=== PATIENT | female | born 1970 | race African-American/Black ===

== ENCOUNTER 2023-02-12 08:34 | Emergency (ER) | payer OTHER, SELFPAY ==
[2023-02-12] VITALS (9 sets, daily range): BP systolic 200–231; BP diastolic 89–110; PULSE 47–59; RESP 13–24; TEMP 36.9; O2SAT 98–100; BMI 47.2
--- NOTE | 2023-02-12 09:01 | DI.RAD.S_ITS ---
PROCEDURE: XR CHEST 1V INDICATIONS: High blood pressure TECHNIQUE: One view of the chest was acquired. COMPARISON: None. FINDINGS: Surgical changes and devices: None. Lungs and pleura: Lungs are clear. No pleural effusions or pneumothorax. Mediastinum: Mediastinal contours appear normal. Heart size is enlarged. Bones and chest wall: No suspicious bony lesions. Overlying soft tissues appear unremarkable. IMPRESSION: No acute cardiopulmonary abnormality. Dictated by: Abby Odell M.D. on 02/12/2023 at 11:25 Approved by: Abby Odell M.D. on 02/12/2023 at 11:25
--- NOTE | 2023-02-12 09:02 | ED_ITS ---
HPI - General Adult General Chief complaint: Hypertension Stated complaint: sent by Nurse hotline for high B/P and Headache Time Seen by Provider: 02/12/23 08:38 Source: patient Mode of arrival: Ambulatory History of Present Illness HPI narrative: Patient is a 52-year-old female. For the past 2 weeks has had a headache. She is tried Tylenol without any improvement. States the pain is somewhat behind her right eye. She is no other neurologic symptoms to include numbness or tingling in her upper lower extremity. Her who is at bedside stated that she stumbled this morning. The patient does not specifically remember why she stumbled. She did not hit her head. She is under quite a bit of stress she has her parents living with her and her father has Alzheimer's. This is new stress in her life. Because she was having a headache her mom gave her a blood pressure cuff. She is been taking her blood pressures and they have ranged anywhere from 170s systolic to 190 systolic. She does not have a history of high blood pressure. Does not take any medicines. She called the nurse hotline who advised that she come to the emergency department for further evaluation. Related Data Previous Rx's Medication Instructions Recorded lisinopril 10 mg tablet 10 mg PO DAILY #30 tabs 02/12/23 Allergies Allergy/AdvReac Type Severity Reaction Status Date / Time Penicillins [PENICILLINS] Allergy Mild RASH Verified 02/12/23 09:27 amoxicillin [From AUGMENTIN] Allergy Unknown RASH Verified 02/12/23 09:27 clavulanic acid Allergy Unknown RASH Verified 02/12/23 09:27 [From AUGMENTIN] Review of Systems Constitutional Constitutional: Reports system reviewed and no additional complaints, except as documented Eyes Eyes: Reports system reviewed and no additional complaints, except as documented Cardiovascular Comments: No chest pain Respiratory Comments: No shortness of breath Gastrointestinal Comments: No abdominal pain Neurologic Neurologic: Reports system reviewed and no additional complaints, except as documented Patient History Social History Smoking Status: Never smoker Smoking Status: Never smoker Exam Initial Vital Signs Initial Vital Signs: Vital Signs Temperature 98.4 F 02/12/23 08:53 Pulse Rate 59 L 02/12/23 08:53 Respiratory Rate 24 02/12/23 08:53 Blood Pressure 231/110 H 02/12/23 08:53 Pulse Oximetry 99 02/12/23 08:53 Oxygen Delivery Method Room Air 02/12/23 08:53 HENMT Head: normal to inspection and normocephalic Resp Effort & Inspection: normal respiratory effort Auscultation: clear to auscultation bilaterally Cardio Rate: regular rate Rhythm: regular rhythm Neuro General: patient alert, patient awake, patient oriented x3 and moves all extremities Cognition: normal cognition Speech: speech normal Gait: normal gait Extrem General: normal to inspection and No edema Course Orders Ordered: ED Orders 02/12/23 09:01 CT head/brain wo con Stat XR chest 1V Stat 02/12/23 09:06 EKG-12 Lead Stat 02/12/23 09:18 Complete Blood Count AUTO DIFF Stat Comprehensive Metabolic Panel Stat Lipase Stat Troponin & CK Cardiac Panel Stat Discontinued Medications Diphenhydramine HCl (Diphenhydramine 50 Mg/Ml Vial) 25 mg IV NOW ONE Stop: 02/12/23 10:31 Last Admin: 02/12/23 10:36 Dose: 25 mg Documented By: MARTHA Lisinopril (Lisinopril 10 Mg Tablet) 10 mg PO NOW ONE Stop: 02/12/23 09:02 Last Admin: 02/12/23 09:33 Dose: 10 mg Documented By: MARTHA Metoclopramide HCl (Metoclopramide 10 Mg/2 Ml Inj) 10 mg IV NOW ONE Stop: 02/12/23 10:31 Last Admin: 02/12/23 10:37 Dose: 10 mg Documented By: MARTHA Vital Signs Vital signs: Vital Signs - 8 hr 02/12/23 08:53 02/12/23 09:33 02/12/23 09:42 Temperature 98.4 F Pulse Rate 59 L 55 L 47 L Respiratory Rate 24 24 Blood Pressure 231/110 H 211/96 H Pulse Oximetry 99 100 Oxygen Delivery Method Room Air 02/12/23 09:43 02/12/23 09:59 02/12/23 09:59 Temperature Pulse Rate 50 L 47 L Respiratory Rate 20 20 Blood Pressure 211/96 H 222/96 H Pulse Oximetry 98 99 Oxygen Delivery Method Room Air 02/12/23 10:00 02/12/23 10:29 02/12/23 10:29 Temperature Pulse Rate 47 L 50 L Respiratory Rate 22 Blood Pressure 216/89 H Pulse Oximetry 100 98 Oxygen Delivery Method 02/12/23 10:30 02/12/23 10:59 02/12/23 10:59 Temperature Pulse Rate 48 L 52 L Respiratory Rate 13 20 Blood Pressure 200/91 H Pulse Oximetry 100 100 Oxygen Delivery Method Medical Decision Making Lab Data Lab results reviewed: Yes I reviewed the patient's lab results. 02/12/23 09:18 02/12/23 09:18 Labs: Lab Results 02/12/23 Range/Units 09:18 WBC 4.6 (4.5-11.0) X10^3/uL RBC 4.60 (4.0-5.2) X10^6/uL Hgb 11.7 L (12.0-16.0) g/dL Hct 36.2 (36-46) % MCV 78.7 L (80-100) fL MCH 25.4 L (26-34) PG MCHC 32.3 (30-36) % RDW 16.0 H (11.6-14.8) % Plt Count 248 (150-400) X10^3/uL Neut % (Auto) 40.4 L (50-75) % Lymph % (Auto) 47.6 H (25-40) % [place] % (Auto) 10.5 (3-14) % Eos % (Auto) 0.0 L (2-4) % Baso % (Auto) 1.5 (0-2) % Neut # (Auto) 1900 (0809-5763) /uL Lymph # (Auto) 2200 (8917-5571) /uL [place] # (Auto) 500 (0-900) /uL Eos # (Auto) 0 (0-450) /uL Baso # (Auto) 100 (0-100) /uL Sodium 136 L (137-145) mmol/L Potassium 4.4 (3.4-5.1) mmol/L Chloride 108 H (98-107) mmol/L Carbon Dioxide 21 L (22-32) mmol/L BUN 8 (7-17) mg/dL Creatinine 0.41 L (0.52-1.04) mg/dL Estimated GFR > 60 (>60) mL/min BUN/Creatinine Ratio 19.5 (6-22) Glucose 104 H (70-100) mg/dL Calcium 9.3 (8.4-10.2) mg/dL Total Bilirubin 0.9 (0.2-1.3) mg/dL AST 31 (14-36) IU/L ALT 22 (<35) IU/L Alkaline Phosphatase 103 (38-126) U/L Total Creatine Kinase 112 (30-135) U/L Troponin I < 0.012 (0.01-0.034) ng/mL Total Protein 7.3 (6.3-8.2) g/dL Albumin 3.8 (3.5-5.0) g/dL Globulin 3.5 (1.7-4.1) g/dL Albumin/Globulin Ratio 1.1 (1.0-2.8) Lipase 49 (23-300) U/L Imaging Data CT scan - head: Radiologist's Impression: PROCEDURE: CT HEAD/BRAIN WO CON INDICATIONS: Headache and high blood pressure TECHNIQUE: Noncontrast 4.5 mm thick angled axial sections acquired from the foramen magnum to the vertex, with coronal and sagittal reformats. For radiation dose reduction, the following was used: automated exposure control, adjustment of mA and/or kV according to patient size. COMPARISON: None. FINDINGS: Image quality: Excellent. CSF spaces: Basal cisterns are patent. No extra-axial fluid collections. Ventricles are normal in size and shape. Brain: No midline shift. No intracranial masses or hemorrhage. Sims-white matter interface is normal. Skull and face: Calvarium and visualized facial bones are intact, without suspicious lesions. Sinuses: Visualized sinuses and mastoids are clear. IMPRESSION: No acute intracranial abnormalities. ECG Data Attestation: I personally reviewed and interpreted this ECG as follows: Interpretation: Sinus bradycardia Ventricular rate of 48 Normal axis Normal QRS Normal QTC No ST T wave changes MDM Narrative Medical decision making narrative: Patient has had a headache for the past several weeks. Her head CT is unremarkable. She is hypertensive. She is started to take her blood pressure for the past week. Systolic blood pressure ranges from 1 60s to 190s. She is no prior history of high blood pressure. She reports resolution of headache after the Reglan and Benadryl. Her blood pressure did improve with this as well. She was given blood pressure medicine here in the ER. She would like to go home. She does have a scheduled follow-up appointment with a new primary doctor. Will start her on lisinopril. We discussed taking her blood pressure at home so that she can take it into her new primary doctor. She was given return precautions. She expressed understanding and agreement with plan. Discharge Plan Departure Patient Disposition: Home Clinical Impression: Hypertension, Headache Instructions: DI for High Blood Pressure Activity Restrictions/Additional Instructions: I do recommend that you start taking the lisinopril as directed. It was sent to [facility] per your request. Also recommend that you take your blood pressure at home like we discussed. Keep your scheduled appointment with your primary provider. Return to the emergency department for new or worsening symptoms. Prescriptions: New lisinopril 10 mg tablet 10 mg PO DAILY Qty: 30 2RF Referrals: Radha Butcher MD [Primary Care Provider] - Stand Alone Forms: Patient Portal/API
[2023-02-12 09:23] LABS: Add Manual Diff / Slide Review NO; Basophils Absolute Auto 100 /uL (0-100); Basophils Percent Auto 1.5 % (0-2); Eosinophils Absolute Auto 0 /uL (0-450); Hematocrit 36.2 % (36-46); Hemoglobin 11.7 g/dL (12.0-16.0); Lymphocytes Absolute Auto 2200 /uL (1100-4500); Lymphocytes Percent Auto 47.6 % (25-40); Mean Corpuscular HGB Conc 32.3 % (30-36); Mean Corpuscular Hemoglobin 25.4 PG (26-34); Mean Corpuscular Volume 78.7 fL (80-100); Monocytes Absolute Auto 500 /uL (0-900); Monocytes Percent Auto 10.5 % (3-14); Neutrophils Absolute Auto 1900 /uL (1500-7000); Neutrophils Percent Auto 40.4 % (50-75); Platelet Count 248 X10^3/uL (150-400); White Blood Cell Count 4.6 X10^3/uL (4.5-11.0)
[2023-02-12] MEDS: lisinopriL 10 MG TABLET PO (09:33)
[2023-02-12 09:36] LABS: Alanine Aminotransferase 22 IU/L (<35); Albumin 3.8 g/dL (3.5-5.0); Albumin Globulin Ratio 1.1 (1.0-2.8); Alkaline Phosphatase 103 U/L (38-126); Aspartate Aminotransferase 31 IU/L (14-36); BUN Creatinine Ratio 19.5 (6-22); Bilirubin Total 0.9 mg/dL (0.2-1.3); Blood Urea Nitrogen 8 mg/dL (7-17); Calcium 9.3 mg/dL (8.4-10.2); Carbon Dioxide 21 mmol/L (22-32); Chloride 108 mmol/L (98-107); Creatine Kinase 112 U/L (30-135); Estimated Glomerular Filt Rate > 60 mL/min (>60); Globulin 3.5 g/dL (1.7-4.1); Glucose 104 mg/dL (70-100); HEMOLYSIS 37 (0-50); Lipase 49 U/L (23-300); Potassium 4.4 mmol/L (3.4-5.1); Sodium 136 mmol/L (137-145); Total Protein 7.3 g/dL (6.3-8.2)
[2023-02-12 09:48] LABS: Troponin I < 0.012 ng/mL (0.01-0.034)
--- NOTE | 2023-02-12 10:30 | PC.NURSE ---
Dr. Colorado aware of pt's headache and continued high BP s/p medical support specialist
[2023-02-12] MEDS: diphenhydrAMINE 50 MG/ML VIAL 25 MG IV (10:36)
[2023-02-12] MEDS: METOCLOPRAMIDE 10 MG/2 ML INJ IV (10:37)
--- NOTE | 2023-02-12 11:01 | PC.NURSE ---
pt awake, alert, rr even, unlabored, using tablet in bed, in room, pt requesting to eat. Dr. Miroslava fontanez.
--- NOTE | 2023-02-12 11:11 | PC.NURSE ---
Dr. Colorado at bedside w/ pt and family
== END 2023-02-12 11:24 | disposition home or self-care (01) ==
PROVIDERS: Emergency Provider Emergency Medicine; PCP Family Medicine
DX: I10 Essential (primary) hypertension (principal); R51.9 Headache, unspecified
CPT/HCPCS: 36415; 70450; 71045; 80053; 82550; 83690; 84484; 85025; 93005; 96374; 96375; 99284; J1200; J2765

== ENCOUNTER 2024-01-26 11:25 | Emergency (ER) | payer OTHER, SELFPAY ==
[2024-01-26] VITALS (38 sets, daily range): BP systolic 108–164; BP diastolic 53–75; PULSE 47–70; RESP 12–57; TEMP 36.9; O2SAT 97–100; BMI 43.4
--- NOTE | 2024-01-26 11:39 | DI.CT.S_ITS ---
PROCEDURE: CT ANGIO HEAD AND NECK INDICATIONS: Slurred speech left-sided weakness TECHNIQUE: After the administration of intravenous contrast, 1 mm thick sections acquired from the aortic arch through the [place]. 3-dimensional qqhkshd-orbxuhexz-njeqazzefu (MIP) and/or volume rendering reformats were acquired of the central intracranial vasculature and neck separately. For radiation dose reduction, the following was used: automated exposure control, adjustment of mA and/or kV according to patient size. COMPARISON: [facility], CT, CT HEAD/BRAIN WO CON, 02/12/2023, 9:22. [facility], CT, CT STROKE, 01/26/2024, 11:51. FINDINGS: Image quality: Limited by bolus timing, with venous contamination. There is streak artifact seen through the level of the shoulders. BRAIN: CSF spaces: Ventricles are normal in size and shape. Basal cisterns are patent. No extra-axial fluid collections. Brain: No significant abnormality of the brain can be seen. Skull and face: Calvarium and facial bones appear intact, without suspicious lesions. Orbits appear normal. Sinuses: Sinuses and mastoids are clear. HEAD CT ANGIOGRAPHY: Anterior circulation: Intracranial internal carotid arteries are normal in size and flow. The flow within the paired anterior cerebral arteries is normal and symmetric. The flow within the middle cerebral arteries is normal and symmetric. The anterior communicating artery is seen. No aneurysms are seen. Posterior circulation: Visualized portions of the vertebral arteries demonstrate normal caliber, and join to form a normal appearing basilar artery. There is a prominent right posterior communicating artery seen, with an accompanying diminutive right P1 segment. This is attributed to a type origin of the right posterior cerebral artery, which is considered to be a normal developmental variant of typically no clinical consequence. The flow within the posterior cerebral arteries is normal and symmetric. No aneurysms are seen. NECK CT ANGIOGRAPHY: Carotid system: Incidental note is made of a common origin of the right brachiocephalic artery and the left common carotid artery (bovine type arch). This is considered to be a developmental variant of no clinical consequence. The origins of the common carotid arteries appear patent. The common carotid arteries demonstrate normal caliber and courses. The bifurcation regions are both widely patent. The internal carotid arteries demonstrate normal calibers and courses. Posterior circulation: The origins of the vertebral arteries both appear widely patent. The more superior extracranial portions of both vertebral arteries also demonstrate normal courses and calibers. The left vertebral artery is dominant to the right. Soft tissues: Visualized neck soft tissues demonstrate no suspicious abnormalities. Bones: No suspicious bony lesions. Visualized cervical spine appears normally aligned. IMPRESSION: No significant intracranial arterial abnormality is seen. No significant abnormality is seen within the arteries of the neck. Additional findings: Chjdlh-xc-Dirord developmental anomalies Bovine type arch branching pattern Any quantitative measurements of stenosis were performed using NASCET criteria. Dictated by: Dale Grubbs M.D. on 01/26/2024 at 11:24 Approved by: Dale Grubbs M.D. on 01/26/2024 at 11:28
--- NOTE | 2024-01-26 11:39 | DI.CT.S_ITS ---
PROCEDURE: CT STROKE INDICATIONS: Slurred speech left-sided weakness TECHNIQUE: Noncontrast 4.5 mm thick angled axial sections acquired from the foramen magnum to the vertex, with coronal reformats. For radiation dose reduction, the following was used: automated exposure control, adjustment of mA and/or kV according to patient size. COMPARISON: None. FINDINGS: Image quality: Diagnostic. CSF spaces: Basal cisterns are patent. No extra-axial fluid collections. Ventricles are normal in size and shape. Brain: No midline shift. No intracranial masses or hemorrhage. Sims-white matter interface is normal. Skull and face: Calvarium and visualized facial bones are intact, without suspicious lesions. Sinuses: Visualized sinuses and mastoids are clear. IMPRESSION: Comment: Findings were discussed with Dr. Valdez on at 1202 hours This study fulfills neurological imaging criteria for inclusion or exclusion of acute stroke therapies based on available published neurological imaging guidelines. Dictated by: Erick Thompson M.D. on 01/26/2024 at 12:01 Approved by: Erick Thompson M.D. on 01/26/2024 at 12:03
--- NOTE | 2024-01-26 11:41 | ED.BACK ---
HPI - Back Pain/Injury General Chief Complaint: Back Pain/Injury Stated Complaint: poss stroke Time Seen by Provider: 01/26/24 11:39 Source: patient Related Data Previous Rx's Medication Instructions Recorded lisinopril 10 mg tablet 10 mg PO DAILY #30 tabs 02/12/23 Allergies Allergy/AdvReac Type Severity Reaction Status Date / Time Penicillins [PENICILLINS] Allergy Mild RASH Verified 02/12/23 09:27 amoxicillin [From AUGMENTIN] Allergy Unknown RASH Verified 02/12/23 09:27 clavulanic acid Allergy Unknown RASH Verified 02/12/23 09:27 [From AUGMENTIN] Patient History Social History Smoking Status: Never smoker Smoking Status: Never smoker Substance Use Type: does not use Exam Initial Vital Signs Initial Vital Signs: Vital Signs Temperature 98.4 F 01/26/24 11:28 Pulse Rate 58 L 01/26/24 11:28 Respiratory Rate 18 01/26/24 11:28 Blood Pressure 143/65 H 01/26/24 11:28 Pulse Oximetry 100 01/26/24 11:28 Oxygen Delivery Method Room Air 01/26/24 11:28 Course Orders Ordered: ED Orders 01/26/24 11:[address] angio head and neck Stat Complete Blood Count AUTO DIFF Stat Comprehensive Metabolic Panel Stat Ethanol (ETOH) Stat PTT Partial Thromboplastin Gio Stat Prothrombin Time INR Stat Troponin & CK Cardiac Panel Stat Urinalysis and Microscopic Stat Urine Drug Screen, Rapid Stat EKG-12 Lead Stat Sodium Chloride (Normal Saline 0.9%) 500 mls @ 1,000 mls/hr IV BOLUS ONE Stop: 01/26/24 12:10 Vital Signs Vital signs: Vital Signs - 8 hr 01/26/24 11:28 01/26/24 11:28 01/26/24 11:30 Temperature 98.4 F Pulse Rate 58 L 70 59 L Respiratory Rate 18 37 H 36 H Blood Pressure 143/65 H Pulse Oximetry 100 100 99 Oxygen Delivery Method Room Air 01/26/24 11:30 Temperature Pulse Rate Respiratory Rate Blood Pressure 143/65 H Pulse Oximetry Oxygen Delivery Method Discharge Plan Departure Prescriptions: No Action lisinopril 10 mg tablet 10 mg PO DAILY Qty: 30 2RF Referrals: Radha Butcher MD [Primary Care Provider] -
--- NOTE | 2024-01-26 11:43 | ED_ITS ---
HPI - Back Pain/Injury General Chief Complaint: Back Pain/Injury Stated Complaint: poss stroke Time Seen by Provider: 01/26/24 11:39 Source: patient History of Present Illness HPI Narrative: Code stroke activated. Last well known 11:10 a.m.. Patient brought here by . Patient originally had complaints of lower left back pain radiating to left leg 1:00 a.m. today. was helping her because she could not get up to go the bathroom. He felt and massage some very tight muscles than left lower back. No prior history of back problems or surgeries or MRI. No bowel or bladder incontinence or retention. She feels weak in her left leg with some tingling. was driving her here and about 11:10 a.m. in the car she had some slurred speech and confusion. No headache. No chest pain. No abdominal pain. No prior history heart attack or stroke. Related Data Home Medications Medication Instructions Recorded Confirmed amlodipine 10 mg tablet See Rx Instructions .Route .COMPLEX 01/27/24 01/27/24 chlorthalidone 25 mg tablet 25 mg PO QAM 01/27/24 01/27/24 empagliflozin 10 mg tablet 5 mg PO DAILY 01/27/24 01/27/24 (Jardiance) simvastatin 10 mg tablet 10 mg PO ONCE PM 01/27/24 01/27/24 Previous Rx's Medication Instructions Recorded lisinopril 10 mg tablet 10 mg PO DAILY #30 tabs 02/12/23 Allergies Allergy/AdvReac Type Severity Reaction Status Date / Time Penicillins [PENICILLINS] Allergy Mild RASH Verified 02/12/23 09:27 amoxicillin [From AUGMENTIN] Allergy Unknown RASH Verified 02/12/23 09:27 clavulanic acid Allergy Unknown RASH Verified 02/12/23 09:27 [From AUGMENTIN] Review of Systems Review of Systems Narrative: GENERAL: Negative chills, fatigue, malaise, fever, sweats. HEENT: Negative sinus pain, ear pain, sore throat RESPIRATORY: Negative dyspnea, cough CARDIOVASCULAR: Negative chest pain, palpitations GASTROINTESTINAL: Negative nausea, vomiting, abdominal pain : Negative dysuria, frequency, hematuria MUSCULOSKELETAL: Positive back pain, muscle or bony pain SKIN: rash, skin lesions NEUROLOGIC: Positive weakness, numbness, negative headache ROS Unobtainable: All systems reviewed & are unremarkable except as noted in HPI and below Patient History Social History Smoking Status: Never smoker Smoking Status: Never smoker Substance Use Type: does not use Exam Narrative Exam Narrative: GENERAL: in no distress, not toxic not dyspneic HEAD: Normocephalic. EYES: Pupils equal round ENT: Mucous membranes moist. NECK: Trachea midline. CARDIOVASCULAR: Regular rate and rhythm RESPIRATORY: Clear to auscultation. Breath sounds equal bilaterally. No wheezes, rales, or rhonchi. GASTROINTESTINAL: Abdomen soft, non-tender EXTREMITIES: No gross deformities. No midline tenderness or step-off the thoracic or lumbar spine. Mild tenderness to the left paralumbar muscles. However no pain with straight leg raise bilaterally to 60?. BACK: No flank tenderness. NEURO: AOx4. Slow but clear speech. No facial droop light touch intact bilateral face and hands. Diminished light touch to the left foot and leg. There is weakness to straight leg raise on the left. Slight drift with left hand on pronator drift. Able to ankle flexion and extend at the left ankle. Wiggles toes. Foot is warm soft and has brisk cap refills strong pedal pulses SKIN: Warm and dry PSYCH: Not anxious, is cooperative Initial Vital Signs Initial Vital Signs: Vital Signs Temperature 98.4 F 01/26/24 11:28 Pulse Rate 58 L 01/26/24 11:28 Respiratory Rate 18 01/26/24 11:28 Blood Pressure 143/65 H 01/26/24 11:28 Pulse Oximetry 100 01/26/24 11:28 Oxygen Delivery Method Room Air 01/26/24 11:28 Scores NIH Stroke Scale Level of Conciousness: Alert, keenly responsive Ask month/age: Answers both questions correctly. Open/close eyes, close hand: Performs both tasks correctly Best gaze horizontal: Normal Visual pruett: No visual loss Facial palsy: Normal symetrical movement Left arm drift: Drifts down, not to bed Right arm drift: No drift for full 10 sec Left leg drift: Some effort against gravity, cannot maintain, drifts down to bed Right leg drift: No drift for full 5 sec Limb ataxia: Present in two limbs Sensory on face/arms/legs: Mild to moderate sensory loss, can tell touch Best language: No aphasia, normal Dysarthria: Normal Extinction or inattention: No abnormality Total NIH Stroke scale score: 6 Course Orders Ordered: Discontinued Medications Hydromorphone HCl (Hydromorphone 1 Mg Inj) 1 mg IV NOW ONE Stop: 01/26/24 13:28 Last Admin: 01/26/24 13:30 Dose: 1 mg Documented By: BRISEIDA Hydromorphone HCl (Hydromorphone 1 Mg Inj) 1 mg IV NOW ONE Stop: 01/26/24 14:43 Last Admin: 01/26/24 14:44 Dose: 1 mg Documented By: BRISEIDA Sodium Chloride (Normal Saline 0.9%) 500 mls @ 1,000 mls/hr IV BOLUS ONE Stop: 01/26/24 12:10 Last Infusion: 01/26/24 12:45 Dose: Infused Documented By: Admin: 01/26/24 12:08 Dose: 1,000 mls/hr Documented By: BRISEIDA Tenecteplase (Tenecteplase 50 Mg Vial) 25 mg IV NOW ONE Stop: 01/26/24 12:56 Last Admin: 01/26/24 13:05 Dose: 25 mg Documented By: BRISEIDA Co-signed By: MELITA Vital Signs Vital signs: Vital Signs - 8 hr 01/26/24 11:28 01/26/24 11:28 01/26/24 11:30 Temperature 98.4 F Pulse Rate 58 L 70 59 L Respiratory Rate 18 37 H 36 H Blood Pressure 143/65 H Pulse Oximetry 100 100 99 Oxygen Delivery Method Room Air 01/26/24 11:30 01/26/24 12:01 01/26/24 12:02 Temperature Pulse Rate 54 L Respiratory Rate 41 H Blood Pressure 143/65 H 143/64 H Pulse Oximetry 100 Oxygen Delivery Method 01/26/24 12:02 01/26/24 12:05 01/26/24 12:05 Temperature Pulse Rate 55 L 54 L Respiratory Rate 36 H 35 H Blood Pressure 144/68 H Pulse Oximetry 100 100 Oxygen Delivery Method 01/26/24 12:10 01/26/24 12:10 01/26/24 12:15 Temperature Pulse Rate 58 L Respiratory Rate 31 H Blood Pressure 144/72 H 150/73 H Pulse Oximetry 98 Oxygen Delivery Method 01/26/24 12:15 01/26/24 12:20 01/26/24 12:20 Temperature Pulse Rate 61 58 L Respiratory Rate 22 25 H Blood Pressure 152/73 H Pulse Oximetry 100 99 Oxygen Delivery Method 01/26/24 12:25 01/26/24 12:25 01/26/24 12:30 Temperature Pulse Rate 61 Respiratory Rate 19 Blood Pressure 151/72 H 151/72 H Pulse Oximetry 100 Oxygen Delivery Method 01/26/24 12:30 01/26/24 12:35 01/26/24 12:37 Temperature Pulse Rate 61 65 61 Respiratory Rate 25 H 25 H 30 H Blood Pressure Pulse Oximetry 100 Oxygen Delivery Method 01/26/24 12:37 01/26/24 12:40 01/26/24 12:40 Temperature Pulse Rate 60 Respiratory Rate 33 H Blood Pressure 156/74 H 134/71 Pulse Oximetry Oxygen Delivery Method 01/26/24 12:44 01/26/24 12:45 01/26/24 12:45 Temperature Pulse Rate 60 58 L Respiratory Rate 23 22 Blood Pressure 129/69 Pulse Oximetry 100 100 Oxygen Delivery Method 01/26/24 12:50 01/26/24 12:50 01/26/24 12:55 Temperature Pulse Rate 57 L Respiratory Rate 18 Blood Pressure 139/73 133/71 Pulse Oximetry 100 Oxygen Delivery Method 01/26/24 12:55 01/26/24 13:00 01/26/24 13:05 Temperature Pulse Rate 57 L 54 L 63 Respiratory Rate 18 15 15 Blood Pressure Pulse Oximetry 100 100 100 Oxygen Delivery Method 01/26/24 13:10 01/26/24 13:15 01/26/24 13:19 Temperature Pulse Rate 57 L 57 L Respiratory Rate 19 19 Blood Pressure 164/71 H Pulse Oximetry 99 99 Oxygen Delivery Method 01/26/24 13:19 01/26/24 13:20 01/26/24 13:20 Temperature Pulse Rate 57 L 56 L Respiratory Rate 27 H 22 Blood Pressure 155/69 H Pulse Oximetry 99 99 Oxygen Delivery Method 01/26/24 13:25 01/26/24 13:25 01/26/24 13:30 Temperature Pulse Rate 61 49 L Respiratory Rate 57 H 35 H Blood Pressure 146/65 H Pulse Oximetry 98 100 Oxygen Delivery Method 01/26/24 13:31 01/26/24 13:31 01/26/24 13:35 Temperature Pulse Rate 57 L 49 L Respiratory Rate 18 19 Blood Pressure 154/75 H Pulse Oximetry 100 100 Oxygen Delivery Method 01/26/24 13:35 01/26/24 13:40 01/26/24 13:40 Temperature Pulse Rate 49 L Respiratory Rate 22 Blood Pressure 150/68 H 126/57 L Pulse Oximetry 100 Oxygen Delivery Method 01/26/24 13:45 01/26/24 13:45 01/26/24 13:50 Temperature Pulse Rate 47 L 49 L Respiratory Rate 17 18 Blood Pressure 126/58 L Pulse Oximetry 98 97 Oxygen Delivery Method 01/26/24 13:50 Temperature Pulse Rate Respiratory Rate Blood Pressure 128/56 L Pulse Oximetry Oxygen Delivery Method MDM - Back Pain/Injury Lab Data 01/26/24 11:44 01/26/24 11:44 Labs: Lab Results 01/26/24 01/26/24 01/26/24 Range/Units 11:44 13:48 13:48 WBC 4.6 (4.5-11.0) X10^3/uL RBC 5.02 (4.0-5.2) X10^6/uL Hgb 12.5 (12.0-16.0) g/dL Hct 38.9 (36-46) % MCV 77.5 L (80-100) fL MCH 24.8 L (26-34) PG MCHC 32.0 (30-36) % RDW 14.8 (11.6-14.8) % Plt Count 371 (150-400) X10^3/uL Neut % (Auto) 54.6 (50-75) % Lymph % (Auto) 34.1 (25-40) % Heard % (Auto) 9.0 (3-14) % Eos % (Auto) 0.8 L (2-4) % Baso % (Auto) 1.5 (0-2) % Neut # (Auto) 2500 (9399-0843) /uL Lymph # (Auto) 1600 (7864-9299) /uL Heard # (Auto) 400 (0-900) /uL Eos # (Auto) 0 (0-450) /uL Baso # (Auto) 100 (0-100) /uL PT 12.8 H (9.4-12.5) SECONDS INR 1.1 (0.9-1.3) APTT 29 (25.1-36.5) SECONDS Sodium 135 L (137-145) mmol/L Potassium 2.9 L (3.4-5.1) mmol/L Chloride 103 (98-107) mmol/L Carbon Dioxide 18 L (22-32) mmol/L BUN 14 (7-17) mg/dL Creatinine 0.73 (0.52-1.04) mg/dL Estimated GFR > 60 (>60) mL/min BUN/Creatinine Ratio 19.2 (6-22) Glucose 191 H (70-100) mg/dL Calcium 9.2 (8.4-10.2) mg/dL Total Bilirubin 1.3 (0.2-1.3) mg/dL AST 59 H (14-36) IU/L ALT 53 H (<35) IU/L Alkaline Phosphatase 135 H (38-126) U/L Total Creatine Kinase 228 H (30-135) U/L Troponin I < 0.012 (0.01-0.034) ng/mL Total Protein 7.3 (6.3-8.2) g/dL Albumin 4.2 (3.5-5.0) g/dL Globulin 3.1 (1.7-4.1) g/dL Albumin/Globulin Ratio 1.4 (1.0-2.8) Urine Color Yellow Urine Appearance Clear Urine pH 7.0 Normal (4.5-8.0) Ur Specific [place] 1.010 (1.000-1.035) Urine Protein Negative (Negative) Urine Glucose (UA) 2+ H (Negative) g/dL Urine Ketones 1+ H (NEGATIVE) Urine Occult Blood Negative (Negative) Urine Nitrate Negative (Negative) Urine Bilirubin Negative (NEGATIVE) Urine Urobilinogen 1.0 (0.2) E.U./dL Ur Leukocyte Esterase Negative (NEGATIVE) Urine RBC None seen (0-5/HPF) Urine WBC None seen (0-5/HPF) Ur Squamous Epith Cells None seen (0-5/HPF) Urine Bacteria None seen (None) Ur Culture Indicated? Cult not indicated Vol Urine Centrifuged 10ml (spun) U Opiates 300ng/mL cut Negative (Negative) Ur Oxycodone Screen Negative (Negative) Urine Methadone Screen Negative (Negative) Ur Barbiturates Screen Negative (Negative) U Tricyclic Antidepress Negative (Negative) Ur Phencyclidine Scrn Negative (Negative) Ur Amphetamines Screen Negative (Negative) U Methamphetamines Scrn Negative (Negative) Ur MDMA Scrn (Ecstasy) Negative (Negative) U Benzodiazepines Scrn Negative (Negative) Urine Cocaine Screen Negative (Negative) U Marijuana (THC) Screen Negative (Negative) Urine Specific [place] Normal (Normal) Ethyl Alcohol < 10 ( - 10) mg/dL Ur Creatinine Normal (Normal) Imaging Data CT scan - head: Radiologist's Impression: [address] [address] [address] Scan Report Signed Patient: Enma Bermudez MR#: [id number] : 1970 Acct:[id number] Age/Sex: 53 / F Date of Service: 01/26/24 Loc: ED Accession Number: [id number] Procedure: CT Stroke Ordering Provider: Prieto Valdez MD PROCEDURE: CT STROKE INDICATIONS: Slurred speech left-sided weakness TECHNIQUE: Noncontrast 4.5 mm thick angled axial sections acquired from the foramen magnum to the vertex, with coronal reformats. For radiation dose reduction, the following was used: automated exposure control, adjustment of mA and/or kV according to patient size. COMPARISON: None. FINDINGS: Image quality: Diagnostic. CSF spaces: Basal cisterns are patent. No extra-axial fluid collections. Ventricles are normal in size and shape. Brain: No midline shift. No intracranial masses or hemorrhage. Sims-white matter interface is normal. Skull and face: Calvarium and visualized facial bones are intact, without suspicious lesions. Sinuses: Visualized sinuses and mastoids are clear. IMPRESSION: Comment: Findings were discussed with Dr. Valdez on at 1202 hours This study fulfills neurological imaging criteria for inclusion or exclusion of acute stroke therapies based on available published neurological imaging guidelines. Dictated by: Erick Thompson M.D. on 01/26/2024 at 12:01 Approved by: Erick Thompson M.D. on 01/26/2024 at 12:03 CTA - brain/neck: Radiologist's Impression: [address] [address] [address] Scan Report Signed Patient: Enma Bermudez MR#: [id number] : 1970 Acct:[id number] Age/Sex: 53 / F Date of Service: 01/26/24 Loc: ED Accession Number: [id number] Procedure: CT angio head and neck Ordering Provider: Prieto Valdez MD PROCEDURE: CT ANGIO HEAD AND NECK INDICATIONS: Slurred speech left-sided weakness TECHNIQUE: After the administration of intravenous contrast, 1 mm thick sections acquired from the aortic arch through the [place] of [place]. 3-dimensional hyiisjf-uftqgouoy-cmxkhqeytf (MIP) and/or volume rendering reformats were acquired of the central intracranial vasculature and neck separately. For radiation dose reduction, the following was used: automated exposure control, adjustment of mA and/or kV according to patient size. COMPARISON: [facility], CT, CT HEAD/BRAIN WO CON, 02/12/2023, 9:22. [facility], CT, CT STROKE, 01/26/2024, 11:51. FINDINGS: Image quality: Limited by bolus timing, with venous contamination. There is streak artifact seen through the level of the shoulders. BRAIN: CSF spaces: Ventricles are normal in size and shape. Basal cisterns are patent. No extra-axial fluid collections. Brain: No significant abnormality of the brain can be seen. Skull and face: Calvarium and facial bones appear intact, without suspicious lesions. Orbits appear normal. Sinuses: Sinuses and mastoids are clear. HEAD CT ANGIOGRAPHY: Anterior circulation: Intracranial internal carotid arteries are normal in size and flow. The flow within the paired anterior cerebral arteries is normal and symmetric. The flow within the middle cerebral arteries is normal and symmetric. The anterior communicating artery is seen. No aneurysms are seen. Posterior circulation: Visualized portions of the vertebral arteries demonstrate normal caliber, and join to form a normal appearing basilar artery. There is a prominent right posterior communicating artery seen, with an accompanying diminutive right P1 segment. This is attributed to a type origin of the right posterior cerebral artery, which is considered to be a normal developmental variant of typically no clinical consequence. The flow within the posterior cerebral arteries is normal and symmetric. No aneurysms are seen. NECK CT ANGIOGRAPHY: Carotid system: Incidental note is made of a common origin of the right brachiocephalic artery and the left common carotid artery (bovine type arch). This is considered to be a developmental variant of no clinical consequence. The origins of the common carotid arteries appear patent. The common carotid arteries demonstrate normal caliber and courses. The bifurcation regions are both widely patent. The internal carotid arteries demonstrate normal calibers and courses. Posterior circulation: The origins of the vertebral arteries both appear widely patent. The more superior extracranial portions of both vertebral arteries also demonstrate normal courses and calibers. The left vertebral artery is dominant to the right. Soft tissues: Visualized neck soft tissues demonstrate no suspicious abnormalities. Bones: No suspicious bony lesions. Visualized cervical spine appears normally aligned. IMPRESSION: No significant intracranial arterial abnormality is seen. No significant abnormality is seen within the arteries of the neck. Additional findings: Gauczn-ru-Nmnjoz developmental anomalies Bovine type arch branching pattern Any quantitative measurements of stenosis were performed using NASCET criteria. Dictated by: Dale Grubbs M.D. on 01/26/2024 at 11:24 Approved by: Dale Grubbs M.D. on 01/26/2024 at 11:28 CT scan - abdomen/pelvis: Radiologist's Impression: [place] [address] CT Scan Report Signed Patient: Enma Bermudez MR#: [id number] : 1970 Acct:[id number] Age/Sex: 53 / F Date of Service: 01/26/24 Loc: ED Accession Number: [id number] Procedure: CT abdomen pelvis w con Ordering Provider: Prieto Valdez MD PROCEDURE: CT ABDOMEN PELVIS W CON INDICATIONS: Left-sided pain back pain TECHNIQUE: After the administration of intravenous contrast, axial sections acquired from the lung bases to the pubic symphysis. Coronal and sagittal reformats were performed. For radiation dose reduction, the following was used: automated exposure control, adjustment of mA and/or kV according to patient size. COMPARISON: None. FINDINGS: Image quality: Diagnostic Lower chest: No dense airspace disease. No pleural effusions. Small hiatal hernia. Postsurgical changes at the gastroesophageal junction. Possible coronary calcifications. Liver: Unremarkable Gallbladder and biliary system: Cholelithiasis. Nondilated. Pancreas: No ductal dilation Spleen: Nonenlarged Adrenals: No discrete nodules Kidneys: No hydronephrosis. No obstructing calcified stone A small hyperdensity that appears to project over the left proximal ureter is favored to represent volume-averaging artifact from a tortuous adjacent vessel Vessels and lymph nodes: No abdominal aortic aneurysm. The main portal vein is patent. There are mildly enlarged pelvic lymph nodes for example right external iliac chain measuring 1.1 cm. Bowel and peritoneum: Gastric bypass changes. No small bowel obstruction. No pathologic ascites. Colonic diverticula. Nondilated appendix. Body wall: Unremarkable Pelvis: Bladder is unremarkable. Reproductive organs are unremarkable on limited CT evaluation. Possible uterine senescent calcifications Bones: There are mild degenerative changes. Trace anterolisthesis of L4 on L5. Disc space height loss most significant at L5-S1. No vertebral body height loss or definite traumatic subluxation. IMPRESSION: Cholelithiasis. No biliary ductal dilation. Gastric bypass changes. No small bowel obstruction. Small hiatal hernia. Mild lower lumbar degenerative changes. No acute fracture or traumatic subluxation. If there is high concern for further derangement, consider MRI evaluation. Mildly enlarged pelvic lymph nodes of indeterminate etiology Other findings above. Dictated by: Neri Hernandez M.D. on 01/26/2024 at 12:36 Approved by: Neri Hernandez M.D. on 01/26/2024 at 12:44 [facility] Narrative Medical decision making narrative: Last well known 11:10 a.m.. Patient brought here by . Patient originally had complaints of lower left back pain radiating to left leg 1:00 a.m. today. was helping her because she could not get up to go the bathroom. He felt and massage some very tight muscles than left lower back. No prior history of back problems or surgeries or MRI. No bowel or bladder incontinence or retention. She feels weak in her left leg with some tingling. was driving her here and about 11:10 a.m. in the car she had some slurred speech and confusion. No headache. No chest pain. No abdominal pain. No prior history heart attack or stroke. After history and exam CBC CMP CT head CT angiogram head and neck CT abdomen pelvis EKG CBC CMP urinalysis [facility] Medical records reviewed: No recent visit for this complaint Differential considered: Includes but not limited to stroke TIA aortic dissection lumbar radiculopathy sciatica Lab Test results independently reviewed as above. Pertinent findings: WBC 4.6 hemoglobin 12.5 INR 1.1 sodium 135 potassium 2.9 BUN 14 creatinine 0.73 GFR greater than 60 glucose 191 AST 59 ALT 53 alcohol negative Independently reviewed EKG sinus bradycardia no ST elevation or depression Imaging studies independently reviewed: CT head no acute finding CT angiogram head and neck no acute finding, CT abdomen pelvis no acute finding Consultations: 12:08 p.m.. Spoke with [facility] tele stroke Neurology Dr. HERNANDEZ,, she will use robotic video to interview patient 12:50 p.m.. I spoke with Dr. HERNANDEZ and I am at bedside with patient and family. Attending with Dr. HERNANDEZ at [facility] on tele video. Risks and benefits reviewed with patient and family. Requiring TNK. She does desire to have TNK. She will need to be transferred per our protocol for ICU which we do not have protocol here for post TNK. Consent forms done, Dr. Atkinson and her team will accept patient. To [facility]. Treatments: Normal saline TNK Re-evaluations: 1:21 p.m.. TNK has been given. Again written consent has been completed. No headache.. Patient and family do agree understand need for transfer to [facility] Emergency Department. It is part of protocol. 2:20 p.m.. Re-evaluated patient. No headache. Strong equal geriatrics physician now. No facial droop no lip droop. Patient able to raise her left leg very strong and off the bed. Significant improvement after TNK. Family at bedside. EMS is here to transfer patient Discussion: Appropriate for transfer post TNK per protocol. Tele stroke with [facility] has been in contact and evaluation and treatment for patient. Diagnosis: Acute stroke Critical Care Time Critical Care Time Attestation: Critical Care Time 35 minutes: Critical care time is separate from other billable procedures. This critical care time includes consultation with family and other consulting doctors, review of records, and interpretation of data from labs, EKGs, imaging, etc. Discharge Plan Departure Patient Disposition: [facility] Clinical Impression: Acute stroke due to ischemia Prescriptions: No Action simvastatin 10 mg tablet 10 mg PO ONCE PM chlorthalidone 25 mg tablet 25 mg PO QAM amlodipine 10 mg tablet See Rx Instructions .ROUTE .COMPLEX Rx Instructions: as above Jardiance 10 mg tablet 5 mg PO DAILY lisinopril 10 mg tablet 10 mg PO DAILY Qty: 30 2RF Referrals: Radha Butcher MD [Primary Care Provider] -
[2024-01-26 11:54] LABS: Add Manual Diff / Slide Review NO; Basophils Absolute Auto 100 /uL (0-100); Basophils Percent Auto 1.5 % (0-2); Eosinophils Absolute Auto 0 /uL (0-450); Eosinophils Percent Auto 0.8 % (2-4); Hematocrit 38.9 % (36-46); Hemoglobin 12.5 g/dL (12.0-16.0); Lymphocytes Absolute Auto 1600 /uL (1100-4500); Lymphocytes Percent Auto 34.1 % (25-40); Mean Corpuscular Hemoglobin 24.8 PG (26-34); Mean Corpuscular Volume 77.5 fL (80-100); Monocytes Absolute Auto 400 /uL (0-900); Neutrophils Absolute Auto 2500 /uL (1500-7000); Neutrophils Percent Auto 54.6 % (50-75); Platelet Count 371 X10^3/uL (150-400); Red Blood Cell Count 5.02 X10^6/uL (4.0-5.2); Red Cell Distribution Width 14.8 % (11.6-14.8); White Blood Cell Count 4.6 X10^3/uL (4.5-11.0)
[2024-01-26 12:06] LABS: Alanine Aminotransferase 53 IU/L (<35); Albumin 4.2 g/dL (3.5-5.0); Albumin Globulin Ratio 1.4 (1.0-2.8); Alkaline Phosphatase 135 U/L (38-126); Aspartate Aminotransferase 59 IU/L (14-36); BUN Creatinine Ratio 19.2 (6-22); Bilirubin Total 1.3 mg/dL (0.2-1.3); Blood Urea Nitrogen 14 mg/dL (7-17); Calcium 9.2 mg/dL (8.4-10.2); Carbon Dioxide 18 mmol/L (22-32); Chloride 103 mmol/L (98-107); Creatine Kinase 228 U/L (30-135); Estimated Glomerular Filt Rate > 60 mL/min (>60); Ethanol (ETOH) < 10 mg/dL; Globulin 3.1 g/dL (1.7-4.1); Glucose 191 mg/dL (70-100); HEMOLYSIS < 15 (0-50); INR 1.1 (0.9-1.3); Potassium 2.9 mmol/L (3.4-5.1); Prothrombin Time 12.8 SECONDS (9.4-12.5); Sodium 135 mmol/L (137-145); Total Protein 7.3 g/dL (6.3-8.2)
--- NOTE | 2024-01-26 12:06 | EKG_ITS ---
[address] [address] Test Date: 2024-01-26 Pat Name: Enma Bermudez Department: [facility] Room: Gender: Female [employer] Shovel Operator: BRINA : 1970 Requested By: Order Number: [id number] Reading MD: Olu Bonner MD Measurements Intervals [place] Rate: 55 P: 37 OH: 156 QRS: 21 QRSD: 80 T: -18 QT: 500 QTc: 478 Interpretive Statements Sinus bradycardia with sinus arrhythmia T wave abnormality, consider inferior ischemia T wave abnormality, consider anterolateral ischemia Prolonged QT NO SIGNIFICANT CHANGE FROM PRIOR TRACING Electronically Signed On 01-27-2024 7:30:14 PST by Olu Bonner MD
[2024-01-26 12:08] LABS: PTT Partial Thromboplastin Tim 29 SECONDS (25.1-36.5)
[2024-01-26] MEDS: SODIUM CHLORIDE 0.9% 500 ML 1000 ML IV (12:08)
[2024-01-26 12:17] LABS: Troponin I < 0.012 ng/mL (0.01-0.034)
[2024-01-26] MEDS: TENECTEPLASE 50 MG VIAL 25 MG IV (13:05)
--- NOTE | 2024-01-26 13:17 | PC.NURSE ---
TNK administered to patient at 1309 after a time performed with Dr. Atkinson from [facility] stroke [place] and Dr. Valdez this RN and patient and her spouse. Patient verbally consented to receive TNK medication. Patient consented for spouse to consent to having TNK and spouse wrote his written consent. Family friend write witnessed signature along with this RN.
[2024-01-26] MEDS: HYDROMORPHONE 1 MG INJ IV ×2 (13:30→14:44)
[2024-01-26 13:55] LABS: Appearance Urine UA CLEAR; Bilirubin Urine UA NEGATIVE (NEGATIVE); Color Urine UA YELLOW; Glucose Urine UA 2+ g/dL (Negative); Ketones Urine UA 1+ (NEGATIVE); Leukocyte Esterase Urine UA NEGATIVE (NEGATIVE); Nitrite Urine UA NEGATIVE (Negative); Occult Blood Urine UA NEGATIVE (Negative); Protein Urine UA NEGATIVE (Negative)
[2024-01-26 13:57] LABS: Urine Volume 10mL (spun)
[2024-01-26 14:00] LABS: Bacteria Urine None Seen; Culture Indicated Urine Cult Not Indicated; RBC Urine None Seen (0-5/HPF); Squamous Epithelial Cell Urine None Seen (0-5/HPF); WBC Urine None Seen (0-5/HPF)
[2024-01-26 14:01] LABS: UR Morphine/Opiate cutoff 300 Negative (Negative); Ur Creatinine Normal (Normal); Ur Specific Gravity Normal (Normal); Urine Amphetamines Negative (Negative); Urine Barbiturates Negative (Negative); Urine Benzodiazepines Negative (Negative); Urine Cocaine Negative (Negative); Urine MDMA Negative (Negative); Urine Methadone Negative (Negative); Urine Methamphetamines Negative (Negative); Urine Oxycodone Negative (Negative); Urine Phencyclidine Negative (Negative); Urine Tetrahydrocannabinol Negative (Negative); Urine Tricyclic Antidepressant Negative (Negative); Urine pH Normal (Normal)
--- NOTE | 2024-01-26 14:34 | PC.NURSE ---
This RN gave report to ESPERANZA Hanna from [facility] and performed final neuro assessment with Jacques. Patient leaves with patient patient 3 necklaces, 1 debo ring, and 5 sets of earring. Patient leaves with set of clothes, shoes, phone which has her ID.
--- NOTE | 2024-01-26 14:48 | PC.NURSE ---
This RN helped assist [facility] ambulance crew to transfer the patient to their stretcher.
== END 2024-01-26 14:50 | disposition short-term general hospital (02) ==
PROVIDERS: Emergency Provider Emergency Medicine; PCP Family Medicine
DX: I63.9 Cerebral infarction, unspecified (principal); R47.81 Slurred speech; R53.1 Weakness; M54.50 Low back pain, unspecified; M79.605 Pain in left leg; R29.706 NIHSS score 6; R00.1 Bradycardia, unspecified; I49.8 Other specified cardiac arrhythmias
CPT/HCPCS: 36415; 70450; 70496; 70498; 74177; 80053; 80305; 80320; 81001; 82550; 84484; 85025; 85610; 85730; 93005; 93010; 96361; 96374; 96375; 96376; 99285; 99291; J3101; J1171; Q9967

== ENCOUNTER 2024-06-10 12:34 | Emergency (ER) | payer OTHER, SELFPAY ==
[2024-06-10] VITALS (23 sets, daily range): BP systolic 116–140; BP diastolic 60–73; PULSE 50–64; RESP 13–34; TEMP 36.6; O2SAT 97–100; BMI 41.5
--- NOTE | 2024-06-10 12:44 | DI.RAD.S_ITS ---
PROCEDURE: XR CHEST 1V INDICATIONS: chest pain TECHNIQUE: One view of the chest was acquired. COMPARISON: [facility], CR, XR CHEST 1V, 02/12/2023, 9:17. FINDINGS: Surgical changes and devices: None. Lungs and pleura: An incomplete inspiratory result is noted, causing a crowded appearance to the lung markings. No focal infiltrates are seen. No pneumothorax or significant pleural effusions are seen. Mediastinum: Mediastinal contours appear normal. Heart size is normal. Bones and chest wall: Age-appropriate bony degenerative changes are seen. No suspicious bony lesions. Overlying soft tissues appear unremarkable. IMPRESSION: Low lung volumes, without an acute abnormality seen by plain film. Dictated by: Dale Grubbs M.D. on 06/10/2024 at 12:37 Approved by: Dale Grubbs M.D. on 06/10/2024 at 12:37
--- NOTE | 2024-06-10 12:44 | EKG_ITS ---
[address] [address] Test Date: 2024-06-10 Pat Name: Enma Bermudez Department: [facility] Room: Gender: Female [employer] Laboratory Manager: ROLANDA : 1970 Requested By: Order Number: [id number] Reading MD: Olu Bonner MD Measurements Intervals [place] Rate: 55 P: 45 [place]: 166 QRS: 8 QRSD: 70 T: 11 QT: 436 QTc: 417 Interpretive Statements Sinus bradycardia Nonspecific T wave abnormality Electronically Signed On 06-11-2024 8:51:21 PDT by Olu Bonner MD
[2024-06-10 13:08] LABS: Add Manual Diff / Slide Review NO; Basophils Absolute Auto 100 /uL (0-100); Basophils Percent Auto 1.2 % (0-2); Eosinophils Absolute Auto 200 /uL (0-450); Eosinophils Percent Auto 3.7 % (2-4); Hematocrit 41.8 % (36-46); Hemoglobin 14.1 g/dL (12.0-16.0); Lymphocytes Absolute Auto 1900 /uL (1100-4500); Lymphocytes Percent Auto 35.1 % (25-40); Mean Corpuscular HGB Conc 33.7 % (30-36); Mean Corpuscular Hemoglobin 32.1 PG (26-34); Mean Corpuscular Volume 95.3 fL (80-100); Monocytes Absolute Auto 500 /uL (0-900); Monocytes Percent Auto 9.4 % (3-14); Neutrophils Absolute Auto 2700 /uL (1500-7000); Neutrophils Percent Auto 50.6 % (50-75); Platelet Count 373 X10^3/uL (150-400); Red Blood Cell Count 4.38 X10^6/uL (4.0-5.2); Red Cell Distribution Width 12.3 % (11.6-14.8); White Blood Cell Count 5.4 X10^3/uL (4.5-11.0)
--- NOTE | 2024-06-10 13:13 | PC.NURSE ---
Patient here in department after syncopal episode while standing making breakfast, no thinners, +LOC, denies hitting her head. Patient currently feels lightheaded, denies chest pain or sob. Patient reports the lightheadedness started yesterday when she restarted her gabapentin, last does was this AM at 0900. Patient here back in January for stroke, was sent to [facility]
[2024-06-10 13:19] LABS: INR 1.1 (0.9-1.3); Prothrombin Time 12.3 SECONDS (9.4-12.5)
[2024-06-10 13:20] LABS: Alanine Aminotransferase 35 IU/L (<35); Albumin 4.4 g/dL (3.5-5.0); Albumin Globulin Ratio 1.4 (1.0-2.8); Alkaline Phosphatase 102 U/L (38-126); Aspartate Aminotransferase 37 IU/L (14-36); BUN Creatinine Ratio 31.8 (6-22); Bilirubin Total 0.9 mg/dL (0.2-1.3); Blood Urea Nitrogen 28 mg/dL (7-17); Calcium 9.9 mg/dL (8.4-10.2); Carbon Dioxide 22 mmol/L (22-32); Chloride 103 mmol/L (98-107); Creatine Kinase 81 U/L (30-135); Estimated Glomerular Filt Rate > 60 mL/min (>60); Globulin 3.2 g/dL (1.7-4.1); Glucose 97 mg/dL (70-100); HEMOLYSIS 23 (0-50); Lipase 81 U/L (23-300); Magnesium 2.3 mg/dL (1.6-2.3); Sodium 137 mmol/L (137-145); Total Protein 7.6 g/dL (6.3-8.2)
[2024-06-10 13:21] LABS: PTT Partial Thromboplastin Tim 34 SECONDS (25.1-36.5)
[2024-06-10 13:32] LABS: NT-proBNP (BNP-Adult 18+) 49 pg/mL (<125); Troponin I < 0.012 ng/mL (0.01-0.034)
--- NOTE | 2024-06-10 18:12 | ED.GENADULT ---
HPI - General Adult General Chief complaint: Syncope Stated complaint: low bp 70/40, feeling faint, syncope 1.5 hour Time Seen by Provider: 06/10/24 18:02 Source: patient Mode of arrival: Ambulatory History of Present Illness HPI narrative: 53-year-old woman with a history of hypertension, diabetes, hyperlipidemia knee pain recently restarted gabapentin after finishing course of physical therapy comes in today with a syncopal episode. There has been reports that she actually lost consciousness and slumped to the ground without injury. notes systolic blood pressure at that time was in the 70 range. Continue to be slightly hypotensive and urgent care was brought to the ER and by the time she arrived to the ER blood pressure was 119/64. She has no complaints of headache, chest pain, palpitation, shortness for breath, lower extremity edema. She does take all 3 of her blood pressure medications at 7:00 p.m.. She states she checks her blood pressures approximately once a week but could increase that. Related Data Home Medications Medication Instructions Recorded Confirmed amlodipine 10 mg tablet See Rx Instructions .Route .COMPLEX 01/27/24 01/27/24 chlorthalidone 25 mg tablet 25 mg PO QAM 01/27/24 01/27/24 empagliflozin 10 mg tablet 5 mg PO DAILY 01/27/24 01/27/24 (Jardiance) simvastatin 10 mg tablet 10 mg PO ONCE PM 01/27/24 01/27/24 Previous Rx's Medication Instructions Recorded lisinopril 10 mg tablet 10 mg PO DAILY #30 tabs 02/12/23 Allergies Allergy/AdvReac Type Severity Reaction Status Date / Time Penicillins [PENICILLINS] Allergy Mild RASH Verified 02/12/23 09:27 amoxicillin [From AUGMENTIN] Allergy Unknown RASH Verified 02/12/23 09:27 clavulanic acid Allergy Unknown RASH Verified 02/12/23 09:27 [From AUGMENTIN] Review of Systems Review of Systems Narrative: Pertinent positive and negative findings as per HPI Patient History Medical History Hyperlipidemia Diabetes Hypertension Social History Smoking Status: Never smoker Smoking Status: Never smoker Exam Initial Vital Signs Initial Vital Signs: Vital Signs Temperature 97.8 F 06/10/24 12:38 Pulse Rate 63 06/10/24 12:38 Respiratory Rate 18 06/10/24 12:38 Blood Pressure 119/64 06/10/24 12:38 Pulse Oximetry 97 06/10/24 12:38 Oxygen Delivery Method Room Air 06/10/24 12:38 General: Healthy appearing, in no acute distress. Able to give a complete and coherent history. Well-nourished well-developed HEENT: Moist mucous membranes, normal sclera with reactive pupils, Respiratory: Lungs are clear to auscultation, no wheezing no rales no rhonchi. Full and symmetrical air movement Cardiac: Regular rate and rhythm no murmurs no bruits Abdomen: Soft, nontender, Skin: Warm and dry, no rashes Neurologic: Grossly neurologically intact with no obvious asymmetries or abnormalities Extremities: No trauma, well perfused Psych: Cooperative, appropriate insight and affect Course Orders Ordered: ED Orders 06/10/24 12:44 XR chest 1V Stat EKG-12 Lead Stat 06/10/24 13:03 Complete Blood Count AUTO DIFF Stat Comprehensive Metabolic Panel Stat Lipase Stat Magnesium Stat NT-proBNP (BNP-Adult 18+) Stat PTT Partial Thromboplastin Gio Stat Prothrombin Time INR Stat Troponin & CK Cardiac Panel Stat Vital Signs Vital signs: Vital Signs - 8 hr 06/10/24 12:38 06/10/24 12:48 06/10/24 12:48 Temperature 97.8 F Pulse Rate 63 55 L Pulse Rate [Orthostatic Lying] Pulse Rate [Orthostatic Sitting] Pulse Rate [Orthostatic Standing] Respiratory Rate 18 Blood Pressure 119/64 116/65 Blood Pressure [Orthostatic Lying] Blood Pressure [Orthostatic Sitting] Blood Pressure [Orthostatic Standing] Pulse Oximetry 97 100 Oxygen Delivery Method Room Air 06/10/24 13:01 06/10/24 13:06 06/10/24 13:06 Temperature Pulse Rate 56 L 54 L Pulse Rate [Orthostatic Lying] Pulse Rate [Orthostatic Sitting] Pulse Rate [Orthostatic Standing] Respiratory Rate 13 Blood Pressure 122/67 Blood Pressure [Orthostatic Lying] Blood Pressure [Orthostatic Sitting] Blood Pressure [Orthostatic Standing] Pulse Oximetry 100 97 Oxygen Delivery Method Room Air 06/10/24 13:30 06/10/24 13:30 06/10/24 14:00 Temperature Pulse Rate 52 L 55 L Pulse Rate [Orthostatic Lying] Pulse Rate [Orthostatic Sitting] Pulse Rate [Orthostatic Standing] Respiratory Rate 16 19 Blood Pressure 119/67 Blood Pressure [Orthostatic Lying] Blood Pressure [Orthostatic Sitting] Blood Pressure [Orthostatic Standing] Pulse Oximetry 99 99 Oxygen Delivery Method 06/10/24 14:00 06/10/24 15:15 06/10/24 15:30 Temperature Pulse Rate 55 L 57 L Pulse Rate [Orthostatic Lying] Pulse Rate [Orthostatic Sitting] Pulse Rate [Orthostatic Standing] Respiratory Rate 17 Blood Pressure 123/73 Blood Pressure [Orthostatic Lying] Blood Pressure [Orthostatic Sitting] Blood Pressure [Orthostatic Standing] Pulse Oximetry 100 99 Oxygen Delivery Method 06/10/24 16:00 06/10/24 16:02 06/10/24 16:02 Temperature Pulse Rate 57 L 53 L Pulse Rate [Orthostatic Lying] Pulse Rate [Orthostatic Sitting] Pulse Rate [Orthostatic Standing] Respiratory Rate 17 18 Blood Pressure 124/63 Blood Pressure [Orthostatic Lying] Blood Pressure [Orthostatic Sitting] Blood Pressure [Orthostatic Standing] Pulse Oximetry 100 100 Oxygen Delivery Method 06/10/24 16:03 06/10/24 16:03 06/10/24 16:05 Temperature Pulse Rate 60 63 Pulse Rate [Orthostatic Lying] Pulse Rate [Orthostatic Sitting] Pulse Rate [Orthostatic Standing] Respiratory Rate 13 34 H Blood Pressure 128/66 Blood Pressure [Orthostatic Lying] Blood Pressure [Orthostatic Sitting] Blood Pressure [Orthostatic Standing] Pulse Oximetry 100 99 Oxygen Delivery Method 06/10/24 16:05 06/10/24 16:06 06/10/24 16:30 Temperature Pulse Rate 56 L Pulse Rate [Orthostatic Lying] 61 Pulse Rate [Orthostatic Sitting] 59 L Pulse Rate [Orthostatic Standing] 63 Respiratory Rate 25 H Blood Pressure 124/66 Blood Pressure [Orthostatic Lying] 124/63 Blood Pressure [Orthostatic Sitting] 128/66 Blood Pressure [Orthostatic Standing] 124/66 Pulse Oximetry 100 Oxygen Delivery Method 06/10/24 16:31 06/10/24 16:31 06/10/24 17:00 Temperature Pulse Rate 57 L 55 L Pulse Rate [Orthostatic Lying] Pulse Rate [Orthostatic Sitting] Pulse Rate [Orthostatic Standing] Respiratory Rate 20 19 Blood Pressure 120/63 Blood Pressure [Orthostatic Lying] Blood Pressure [Orthostatic Sitting] Blood Pressure [Orthostatic Standing] Pulse Oximetry 100 100 Oxygen Delivery Method 06/10/24 17:01 06/10/24 17:01 06/10/24 17:30 Temperature Pulse Rate 56 L 57 L Pulse Rate [Orthostatic Lying] Pulse Rate [Orthostatic Sitting] Pulse Rate [Orthostatic Standing] Respiratory Rate 18 15 Blood Pressure 128/60 Blood Pressure [Orthostatic Lying] Blood Pressure [Orthostatic Sitting] Blood Pressure [Orthostatic Standing] Pulse Oximetry 100 99 Oxygen Delivery Method 06/10/24 17:31 06/10/24 17:31 Temperature Pulse Rate 58 L Pulse Rate [Orthostatic Lying] Pulse Rate [Orthostatic Sitting] Pulse Rate [Orthostatic Standing] Respiratory Rate 19 Blood Pressure 123/62 Blood Pressure [Orthostatic Lying] Blood Pressure [Orthostatic Sitting] Blood Pressure [Orthostatic Standing] Pulse Oximetry 100 Oxygen Delivery Method Room Air Medical Decision Making Lab Data 06/10/24 13:03 06/10/24 13:03 Labs: Lab Results 06/10/24 Range/Units 13:03 WBC 5.4 (4.5-11.0) X10^3/uL RBC 4.38 (4.0-5.2) X10^6/uL Hgb 14.1 (12.0-16.0) g/dL Hct 41.8 (36-46) % MCV 95.3 (80-100) fL MCH 32.1 (26-34) PG MCHC 33.7 (30-36) % RDW 12.3 (11.6-14.8) % Plt Count 373 (150-400) X10^3/uL Neut % (Auto) 50.6 (50-75) % Lymph % (Auto) 35.1 (25-40) % [place] % (Auto) 9.4 (3-14) % Eos % (Auto) 3.7 (2-4) % Baso % (Auto) 1.2 (0-2) % Neut # (Auto) 2700 (8714-2420) /uL Lymph # (Auto) 1900 (4709-7450) /uL [place] # (Auto) 500 (0-900) /uL Eos # (Auto) 200 (0-450) /uL Baso # (Auto) 100 (0-100) /uL PT 12.3 (9.4-12.5) SECONDS INR 1.1 (0.9-1.3) APTT 34 (25.1-36.5) SECONDS Sodium 137 (137-145) mmol/L Potassium 4.0 (3.4-5.1) mmol/L Chloride 103 (98-107) mmol/L Carbon Dioxide 22 (22-32) mmol/L BUN 28 H (7-17) mg/dL Creatinine 0.88 (0.52-1.04) mg/dL Estimated GFR > 60 (>60) mL/min BUN/Creatinine Ratio 31.8 H (6-22) Glucose 97 (70-100) mg/dL Calcium 9.9 (8.4-10.2) mg/dL Magnesium 2.3 (1.6-2.3) mg/dL Total Bilirubin 0.9 (0.2-1.3) mg/dL AST 37 H (14-36) IU/L ALT 35 H (<35) IU/L Alkaline Phosphatase 102 (38-126) U/L Total Creatine Kinase 81 (30-135) U/L Troponin I < 0.012 (0.01-0.034) ng/mL NT-Pro-B Natriuret Pep 49 (<125) pg/mL Total Protein 7.6 (6.3-8.2) g/dL Albumin 4.4 (3.5-5.0) g/dL Globulin 3.2 (1.7-4.1) g/dL Albumin/Globulin Ratio 1.4 (1.0-2.8) Lipase 81 (23-300) U/L MDM Narrative Medical decision making narrative: CC: Syncopal episode Complicating co-morbidities: Hypertension, hyperlipidemia, diabetes Data collected from: patient Differential considered: Medication side effects, orthostatic hypotension, acute anemia, infection, acute coronary syndrome, pulmonary embolism Exam documented above, pertinent findings include: Exam is entirely benign blood pressure is currently at 140/71. Lab Test results independently reviewed as above. Pertinent findings: CBC is unremarkable, no anemia no signs of infection Chemistries are reassuring no significant electrolyte abnormality, LFTs are trending down Troponin is undetectable BNP is not elevated Independently reviewed EKG: Sinus rhythm at a rate 55 with no significant ischemic change Imaging studies independently reviewed: Chest x-ray is unremarkable Discussion: 53-year-old woman presents with syncopal with no evidence of injury with documented hypotension approximately 12 hours after taking all 3 of her blood pressure medications. She does not believe that she is lost weight however her thinks she has in that may be contributing to the lower blood pressures. There was no evidence of anemia, infection, acute coronary syndrome, arrhythmia, stroke or alternate explanation that would require additional workup today. We suggested decreasing her current amlodipine at 10 mg to 5 mg and continuing that in the evening and changing her current chlorthalidone 25 mg and lisinopril 20 mg to morning dosing to try and avoid peak of all medications at the same time. She has a follow up appointment scheduled with her physician on June 22. This seems entirely reasonable to her. Questions are answered she is discharged Discharge Plan Departure Patient Disposition: Home Clinical Impression: Hypertension Qualifiers: Hypertension type: primary hypertension Qualified Code(s): I10 - Essential (primary) hypertension Syncope Qualifiers: Syncope type: unspecified Qualified Code(s): R55 - Syncope and collapse Instructions: DI for High Blood Pressure Activity Restrictions/Additional Instructions: Thank you for coming in today Your workup was quite reassuring. I did not find a life-threatening episode for your syncopal episode today. There was no evidence of significant dehydration, kidney problems, heart attack, heart rhythm problems, stroke, heart failure or infection. I suspect that your blood pressure dropping 12 hours after taking all 3 of your medications same time is 1 of the primary reasons that you had this episode today I am going to suggest that you: -cut your 10 mg amlodipine in half, and take 5 mg in the evening -change your lisinopril 20 mg and chlorthalidone 25 mg 2 morning doses. I would recommend no blood pressure medication this evening and in the morning begin the lisinopril chlorthalidone change. To help your doctor re-evaluate this difference when you see them on June 22, I would recommend checking blood pressures at least once a day so they have data to actually make recommendations If you find that you are getting worse or develop any new symptoms, please feel free to return to the emergency department for further evaluation. Prescriptions: No Action simvastatin 10 mg tablet 10 mg PO ONCE PM chlorthalidone 25 mg tablet 25 mg PO QAM amlodipine 10 mg tablet See Rx Instructions .ROUTE .COMPLEX Rx Instructions: as above Jardiance 10 mg tablet 5 mg PO DAILY lisinopril 10 mg tablet 10 mg PO DAILY Qty: 30 2RF Referrals: Radha Butcher MD [Primary Care Provider] - Stand Alone Forms: Patient Portal/API/Survey
== END 2024-06-10 18:37 | disposition home or self-care (01) ==
PROVIDERS: Emergency Medicine; Emergency Provider Emergency Medicine; PCP Family Medicine
DX: I10 Essential (primary) hypertension (principal); R55 Syncope and collapse; R00.1 Bradycardia, unspecified
CPT/HCPCS: 36415; 71045; 80053; 82550; 83690; 83735; 83880; 84484; 85025; 85610; 85730; 93005; 93010; 99283; 99284

== ENCOUNTER 2024-09-10 10:08 | Emergency (ER) | payer OTHER, SELFPAY ==
[2024-09-10] VITALS (36 sets, daily range): BP systolic 83–105; BP diastolic 50–64; PULSE 58–73; RESP 15–22; TEMP 36.4–36.6; O2SAT 95–100; BMI 41.6
[2024-09-10 10:34] LABS: POC Glucose 100 mg/dL (70-99)
--- NOTE | 2024-09-10 10:40 | DI.RAD.S_ITS ---
PROCEDURE: XR CHEST 1V INDICATIONS: hypotension TECHNIQUE: One view of the chest was acquired. COMPARISON: [facility], CR, XR CHEST 1V, 06/10/2024, 12:40. [facility], CR, XR CHEST 1V, 02/12/2023, 9:17. FINDINGS AND IMPRESSION: Low lung volumes. No dense airspace disease or pleural effusions on this single view study. Heart size is at the upper limit of normal, unchanged. Degenerative osseous findings. Dictated by: Neri Hernandez M.D. on 09/10/2024 at 10:11 Approved by: Neri Hernandez M.D. on 09/10/2024 at 10:12
--- NOTE | 2024-09-10 10:41 | EKG_ITS ---
[address] [address] Test Date: 2024-09-10 Pat Name: Enma Bermudez Department: [facility] Room: Gender: Female [employer]: ISAÍAS : 1970 Requested By: Order Number: [id number] Reading MD: Olu Bonner MD Measurements Intervals [place] Rate: 68 P: 48 [place]: 160 QRS: 20 QRSD: 80 T: 5 QT: 424 QTc: 450 Interpretive Statements Normal sinus rhythm Electronically Signed On 09-10-2024 11:35:37 PDT by Olu Bonner MD
[2024-09-10] MEDS: SODIUM CHLORIDE 0.9% 1,000 ML 1000 ML IV (10:46)
[2024-09-10 10:56] LABS: Add Manual Diff / Slide Review NO; Basophils Absolute Auto 0 /uL (0-100); Basophils Percent Auto 0.8 % (0-2); Eosinophils Absolute Auto 0 /uL (0-450); Eosinophils Percent Auto 0.3 % (2-4); Hematocrit 38.3 % (36-46); Hemoglobin 13.4 g/dL (12.0-16.0); Lymphocytes Absolute Auto 800 /uL (1100-4500); Lymphocytes Percent Auto 38.2 % (25-40); Mean Corpuscular Hemoglobin 30.2 PG (26-34); Mean Corpuscular Volume 86.4 fL (80-100); Monocytes Absolute Auto 100 /uL (0-900); Neutrophils Absolute Auto 1100 /uL (1500-7000); Neutrophils Percent Auto 56.7 % (50-75); Platelet Count 106 X10^3/uL (150-400); Red Blood Cell Count 4.44 X10^6/uL (4.0-5.2); Red Cell Distribution Width 12.8 % (11.6-14.8)
[2024-09-10 11:08] LABS: Lactate (Lactic Acid) 0.8 mmol/L (0.7-2.1)
[2024-09-10 11:09] LABS: Alanine Aminotransferase 51 IU/L (<35); Albumin 3.8 g/dL (3.5-5.0); Albumin Globulin Ratio 1.2 (1.0-2.8); Alkaline Phosphatase 87 U/L (38-126); Aspartate Aminotransferase 228 IU/L (14-36); BUN Creatinine Ratio 12.8 (6-22); Bilirubin Total 1.1 mg/dL (0.2-1.3); Blood Urea Nitrogen 95 mg/dL (7-17); Calcium 8.8 mg/dL (8.4-10.2); Carbon Dioxide 13 mmol/L (22-32); Chloride 92 mmol/L (98-107); Estimated Glomerular Filt Rate 6 mL/min (>60); Globulin 3.3 g/dL (1.7-4.1); Glucose 93 mg/dL (70-99); HEMOLYSIS 33 (0-50); Lipase 140 U/L (23-300); Magnesium 2.1 mg/dL (1.6-2.3); Potassium 3.2 mmol/L (3.4-5.1); Sodium 125 mmol/L (137-145); Total Protein 7.1 g/dL (6.3-8.2)
--- NOTE | 2024-09-10 11:32 | ED_ITS ---
HPI - General Adult General Chief complaint: Syncope Stated complaint: series of low bp t-7, fever t-5, low blood sugar Time Seen by Provider: 09/10/24 10:14 Source: patient and family Mode of arrival: Wheelchair History of Present Illness HPI narrative: 53-year-old woman with a history of diabetes currently on Ozempic, hypertension, hyperlipidemia over the last couple of weeks she has been having difficulties with hypotension and syncopal episodes she has been seen by previous physicians and blood pressure medications have been discontinued. She has not had any blood pressure medication at all for the last 48 hours. She continues to have very low blood pressures and near syncopal episodes. Her describes fevers and chills over the last days to 1 week. Question of slight increased confusion and she has also been experiencing hypoglycemia. Patient's only complaint is that she has been exception tired. She is having no cough, abdominal pain, dysuria, flank pain, chest pain feeling shortness of breath or headache. Related Data Home Medications ?Medication ?Instructions ?Recorded ?Confirmed amlodipine 10 mg tablet See Rx Instructions .Route . COMPLEX 01/27/24 01/27/24 chlorthalidone 25 mg tablet 25 mg PO QAM 01/27/2401/13 empagliflozin 10 mg tablet 5 mg PO DAILY 01/27/2401/13 (Jardiance) simvastatin 10 mg tablet 10 mg PO ONCE PM 01/27/24 Previous Rx's ?Medication ?Instructions ?Recorded lisinopril 10 mg tablet 10 mg PO DAILY #30 tabs 04/06 Allergies Allergy/AdvReac Type Severity Reaction Status Date / Time Penicillins (PENICILLINS) Allergy Mild RASH Verified 02/12/23 09:27 amoxicillin (From AUGMENTIN) Allergy Unknown RASH Verified 02/12/23 09:27 clavulanic acid (From Allergy Unknown RASH Verified 02/12/23 09:27 AUGMENTIN) Review of Systems Review of Systems Narrative: Pertinent positive and negative findings as per HPI Patient History Medical History Hyperlipidemia Diabetes Hypertension Exam Initial Vital Signs Initial Vital Signs: Vital Signs Temperature 97.9 F 09/10/24 10:20 Pulse Rate 73 09/10/24 10:20 Respiratory Rate 16 09/10/24 10:20 Blood Pressure 98/50 L 09/10/24 10:20 Pulse Oximetry 97 09/10/24 10:20 Oxygen Delivery Method Room Air 09/10/24 10:20 General: Healthy appearing, in no acute distress. Able to give a complete and coherent history. Well-nourished well-developed HEENT: Moist mucous membranes, normal sclera with reactive pupils, Respiratory: Lungs are clear to auscultation, no wheezing no rales no rhonchi. Full and symmetrical air movement Cardiac: Regular rate and rhythm no murmurs no bruits Abdomen: Soft, nontender, no rebound or guarding, no flank pain Skin: Warm and dry, no rashes Neurologic: Grossly neurologically intact with no obvious asymmetries or abnormalities Extremities: No trauma, well perfused Psych: Cooperative, appropriate insight and affect Course Orders Ordered: ED Orders 09/10/24 10:37 Complete Blood Count AUTO DIFF Stat Comprehensive Metabolic Panel Stat Lactate (Lactic Acid) Stat Lipase Stat Magnesium Stat 09/10/24 10:40 XR chest 1V Stat 09/10/24 10:41 EKG-12 Lead Stat 09/10/24 11:06 Blood Culture Stat 09/10/24 14:00 US renal complete Stat 09/10/24 14:28 UA Complete [Urinalysis and Microscopic] Stat 09/10/24 14:30 Respiratory Panel (Film Array) Stat Discontinued Medications Sodium Chloride (Normal Saline 0.9%) 1,000 mls @ 1,000 mls/hr IV BOLUS ONE Stop: 09/10/24 11:38 Last Infusion: 09/10/24 11:59 Dose: Infused Documented By: Admin: 09/10/24 10:46 Dose: 1,000 mls/hr Documented By: RONY Vital Signs Vital signs: Vital Signs - 8 hr 09/10/24 10:20 09/10/24 10:55 09/10/24 10:55 Temperature 97.9 F Pulse Rate 73 69 Respiratory Rate 16 Blood Pressure 98/50 L 88/55 L Pulse Oximetry 97 95 Oxygen Delivery Method Room Air 09/10/24 11:00 09/10/24 11:00 09/10/24 11:05 Temperature Pulse Rate 63 Respiratory Rate 21 Blood Pressure 94/53 L 92/55 L Pulse Oximetry 95 Oxygen Delivery Method 09/10/24 11:05 09/10/24 11:10 09/10/24 11:10 Temperature Pulse Rate 64 62 Respiratory Rate 22 19 Blood Pressure 96/56 L Pulse Oximetry 96 95 Oxygen Delivery Method 09/10/24 11:15 09/10/24 11:15 09/10/24 11:20 Temperature Pulse Rate 62 62 Respiratory Rate 19 18 Blood Pressure 93/55 L Pulse Oximetry 97 97 Oxygen Delivery Method 09/10/24 11:20 09/10/24 11:25 09/10/24 11:25 Temperature Pulse Rate 62 Respiratory Rate 18 Blood Pressure 91/53 L 91/53 L Pulse Oximetry 97 Oxygen Delivery Method 09/10/24 11:30 09/10/24 11:30 09/10/24 11:35 Temperature Pulse Rate 61 61 Respiratory Rate 19 18 Blood Pressure 91/52 L Pulse Oximetry 97 96 Oxygen Delivery Method 09/10/24 11:35 09/10/24 11:40 09/10/24 11:40 Temperature Pulse Rate 61 Respiratory Rate 20 Blood Pressure 88/51 L 93/55 L Pulse Oximetry 95 Oxygen Delivery Method 09/10/24 11:45 09/10/24 11:45 09/10/24 11:50 Temperature Pulse Rate 60 Respiratory Rate 20 Blood Pressure 87/51 L 88/52 L Pulse Oximetry 97 Oxygen Delivery Method 09/10/24 11:50 09/10/24 11:55 09/10/24 11:55 Temperature Pulse Rate 61 60 Respiratory Rate 15 19 Blood Pressure 94/56 L Pulse Oximetry 96 96 Oxygen Delivery Method 09/10/24 12:00 09/10/24 12:00 09/10/24 12:05 Temperature Pulse Rate 60 Respiratory Rate 18 Blood Pressure 88/53 L 85/50 L Pulse Oximetry 95 Oxygen Delivery Method 09/10/24 12:05 09/10/24 12:10 09/10/24 12:10 Temperature Pulse Rate 60 60 Respiratory Rate 18 17 Blood Pressure 86/50 L Pulse Oximetry 98 98 Oxygen Delivery Method 09/10/24 12:15 09/10/24 12:15 09/10/24 12:21 Temperature Pulse Rate 60 Respiratory Rate 18 Blood Pressure 90/54 L 87/54 L Pulse Oximetry 96 Oxygen Delivery Method 09/10/24 12:21 09/10/24 12:25 09/10/24 12:25 Temperature Pulse Rate 60 60 Respiratory Rate 18 18 Blood Pressure 86/54 L Pulse Oximetry 97 98 Oxygen Delivery Method 09/10/24 12:30 09/10/24 12:30 09/10/24 12:35 Temperature Pulse Rate 62 Respiratory Rate 18 Blood Pressure 87/55 L 83/51 L Pulse Oximetry 98 Oxygen Delivery Method 09/10/24 12:35 09/10/24 12:45 09/10/24 12:45 Temperature Pulse Rate 60 60 Respiratory Rate 17 18 Blood Pressure 92/55 L Pulse Oximetry 97 98 Oxygen Delivery Method 09/10/24 13:00 09/10/24 13:00 09/10/24 13:15 Temperature Pulse Rate 61 61 Respiratory Rate 17 17 Blood Pressure 86/53 L Pulse Oximetry 99 96 Oxygen Delivery Method 09/10/24 13:15 09/10/24 13:30 09/10/24 13:30 Temperature Pulse Rate 63 Respiratory Rate 15 Blood Pressure 91/57 L 96/55 L Pulse Oximetry 100 Oxygen Delivery Method 09/10/24 14:28 09/10/24 14:29 09/10/24 14:29 Temperature Pulse Rate 68 66 Respiratory Rate 15 18 Blood Pressure 101/64 Pulse Oximetry 99 100 Oxygen Delivery Method 09/10/24 14:30 09/10/24 14:30 09/10/24 14:45 Temperature Pulse Rate 65 Respiratory Rate 17 Blood Pressure 93/54 L 100/56 L Pulse Oximetry 100 Oxygen Delivery Method 09/10/24 14:45 09/10/24 15:00 09/10/24 15:00 Temperature Pulse Rate 61 60 Respiratory Rate 18 16 Blood Pressure 96/54 L Pulse Oximetry 100 100 Oxygen Delivery Method 09/10/24 15:15 09/10/24 15:15 09/10/24 15:30 Temperature Pulse Rate 63 Respiratory Rate Blood Pressure 89/50 L 100/59 L Pulse Oximetry 99 Oxygen Delivery Method 09/10/24 15:30 09/10/24 15:45 09/10/24 15:45 Temperature Pulse Rate 60 62 Respiratory Rate 18 18 Blood Pressure 88/53 L Pulse Oximetry 100 99 Oxygen Delivery Method 09/10/24 16:00 09/10/24 16:00 Temperature Pulse Rate 62 Respiratory Rate 22 Blood Pressure 105/60 Pulse Oximetry 97 Oxygen Delivery Method Medical Decision Making Lab Data 09/10/24 10:37 09/10/24 10:37 Labs: Lab Results 09/10/24 09/10/24 09/10/24 Range/Units 10:28 10:37 14:28 WBC 2.0 L (4.5-11.0) X10^3/uL RBC 4.44 (4.0-5.2) X10^6/uL Hgb 13.4 (12.0-16.0) g/dL Hct 38.3 (36-46) % MCV 86.4 (80-100) fL MCH 30.2 (26-34) PG MCHC 35.0 (30-36) % RDW 12.8 (11.6-14.8) % Plt Count 106 L (150-400) X10^3/uL Neut % (Auto) 56.7 (50-75) % Lymph % (Auto) 38.2 (25-40) % Wolfe % (Auto) 4.0 (3-14) % Eos % (Auto) 0.3 L (2-4) % Baso % (Auto) 0.8 (0-2) % Neut # (Auto) 1100 L (8667-2531) /uL Lymph # (Auto) 800 L (9706-0748) /uL Wolfe # (Auto) 100 (0-900) /uL Eos # (Auto) 0 (0-450) /uL Baso # (Auto) 0 (0-100) /uL Sodium 125 L (137-145) mmol/L Potassium 3.2 L (3.4-5.1) mmol/L Chloride 92 L (98-107) mmol/L Carbon Dioxide 13 L (22-32) mmol/L BUN 95 H (7-17) mg/dL Creatinine 7.43 H* (0.52-1.04) mg/dL Estimated GFR 6 L (>60) mL/min BUN/Creatinine Ratio 12.8 (6-22) Glucose 93 (70-99) mg/dL POC Whole Bld Glucose 100 H (70-99) mg/dL Lactate 0.8 (0.7-2.1) mmol/L Calcium 8.8 (8.4-10.2) mg/dL Magnesium 2.1 (1.6-2.3) mg/dL Total Bilirubin 1.1 (0.2-1.3) mg/dL AST 228 H (14-36) IU/L ALT 51 H (<35) IU/L Alkaline Phosphatase 87 (38-126) U/L Total Protein 7.1 (6.3-8.2) g/dL Albumin 3.8 (3.5-5.0) g/dL Globulin 3.3 (1.7-4.1) g/dL Albumin/Globulin Ratio 1.2 (1.0-2.8) Lipase 140 (23-300) U/L Urine Color Yellow Urine Appearance Sl cloudy Urine pH 5.5 (4.5-8.0) Ur Specific Shannon 1.015 (1.000-1.035) Urine Protein 2+ H (Negative) Urine Glucose (UA) Negative (Negative) g/dL Urine Ketones Negative (NEGATIVE) Urine Occult Blood 2+ H (Negative) Urine Nitrate Negative (Negative) Urine Bilirubin Negative (NEGATIVE) Urine Urobilinogen 0.2 (0.2) E.U./dL Ur Leukocyte Esterase Trace H (NEGATIVE) Urine RBC None seen (0-5/HPF) Urine WBC 1-5/hpf (0-5/HPF) Ur Squamous Epith Cells 0-1 /hpf (0-5/HPF) Amorphous Sediment 1+ Urine Bacteria Few (2-10) H (None) Granular Casts 1-5/lpf (None) Ur Culture Indicated? Cult not indicated Vol Urine Centrifuged 10ml (spun) Chlamy pneumoniae PCR (Not Detect) Adenovirus (PCR) (Not Detect) B. pertussis DNA (PCR) (Not Detect) B.parapertussis DNA PCR (Not Detecte) Coronavirus OC43 (PCR) (Not Detect) Coronavirus HKU1 (PCR) (Not Detect) Coronavirus 229E (PCR) (Not Detect) SARS-CoV-2 (PCR) (Not Detecte) Coronavirus NL63 (PCR) (Not Detect) Human Metapneumovir PCR (Not Detect) Influenza Type A (PCR) (Not Detect) Influenza Type B (PCR) (Not Detect) M. pneumoniae (PCR) (Not Detect) Parainfluenza 1 (PCR) (Not Detect) Parainfluenza 2 (PCR) (Not Detect) Parainfluenza 3 (PCR) (Not Detect) Parainfluenza 4 (PCR) (Not Detect) RSV (PCR) (Not Detect) Entero/Rhino (PCR) (Not Detect) 09/10/24 Range/Units 14:30 WBC (4.5-11.0) X10^3/uL RBC (4.0-5.2) X10^6/uL Hgb (12.0-16.0) g/dL Hct (36-46) % MCV (80-100) fL MCH (26-34) PG MCHC (30-36) % RDW (11.6-14.8) % Plt Count (150-400) X10^3/uL Neut % (Auto) (50-75) % Lymph % (Auto) (25-40) % Wolfe % (Auto) (3-14) % Eos % (Auto) (2-4) % Baso % (Auto) (0-2) % Neut # (Auto) (1267-3467) /uL Lymph # (Auto) (7817-5773) /uL Wolfe # (Auto) (0-900) /uL Eos # (Auto) (0-450) /uL Baso # (Auto) (0-100) /uL Sodium (137-145) mmol/L Potassium (3.4-5.1) mmol/L Chloride (98-107) mmol/L Carbon Dioxide (22-32) mmol/L BUN (7-17) mg/dL Creatinine (0.52-1.04) mg/dL Estimated GFR (>60) mL/min BUN/Creatinine Ratio (6-22) Glucose (70-99) mg/dL POC Whole Bld Glucose (70-99) mg/dL Lactate (0.7-2.1) mmol/L Calcium (8.4-10.2) mg/dL Magnesium (1.6-2.3) mg/dL Total Bilirubin (0.2-1.3) mg/dL AST (14-36) IU/L ALT (<35) IU/L Alkaline Phosphatase (38-126) U/L Total Protein (6.3-8.2) g/dL Albumin (3.5-5.0) g/dL Globulin (1.7-4.1) g/dL Albumin/Globulin Ratio (1.0-2.8) Lipase (23-300) U/L Urine Color Urine Appearance Urine pH (4.5-8.0) Ur Specific Shannon (1.000-1.035) Urine Protein (Negative) Urine Glucose (UA) (Negative) g/dL Urine Ketones (NEGATIVE) Urine Occult Blood (Negative) Urine Nitrate (Negative) Urine Bilirubin (NEGATIVE) Urine Urobilinogen (0.2) E.U./dL Ur Leukocyte Esterase (NEGATIVE) Urine RBC (0-5/HPF) Urine WBC (0-5/HPF) Ur Squamous Epith Cells (0-5/HPF) Amorphous Sediment Urine Bacteria (None) Granular Casts (None) Ur Culture Indicated? Vol Urine Centrifuged Chlamy pneumoniae PCR Not detected (Not Detect) Adenovirus (PCR) Not detected (Not Detect) B. pertussis DNA (PCR) Not detected (Not Detect) B.parapertussis DNA PCR Not detected (Not Detecte) Coronavirus OC43 (PCR) Not detected (Not Detect) Coronavirus HKU1 (PCR) Not detected (Not Detect) Coronavirus 229E (PCR) Not detected (Not Detect) SARS-CoV-2 (PCR) Not detected (Not Detecte) Coronavirus NL63 (PCR) Not detected (Not Detect) Human Metapneumovir PCR Not detected (Not Detect) Influenza Type A (PCR) Not detected (Not Detect) Influenza Type B (PCR) Not detected (Not Detect) M. pneumoniae (PCR) Not detected (Not Detect) Parainfluenza 1 (PCR) Not detected (Not Detect) Parainfluenza 2 (PCR) Not detected (Not Detect) Parainfluenza 3 (PCR) Not detected (Not Detect) Parainfluenza 4 (PCR) Not detected (Not Detect) RSV (PCR) Not detected (Not Detect) Entero/Rhino (PCR) Not detected (Not Detect) MDM Narrative Medical decision making narrative: CC: Fatigue and near-syncope with hypotension Complicating co-morbidities: Hypertension, hyperlipidemia, diabetes Data collected from: patient, Differential considered: Sepsis, side effects to Ozempic, polypharmacy, excessive blood pressure medications, stroke, acute coronary Exam documented above, pertinent findings include: Patient appears fatigued but she is alert and exam is otherwise entirely unremarkable. Blood pressure is 98/50, heart rate of 73 Lab Test results independently reviewed as above. Pertinent findings: CBC shows a white count of 2. Hemoglobin is 13.4, platelet count is low at 106 Chemistries are notable for acute renal failure. Creatinine at 7.43, potassium at 3.2, sodium at 1:25 a.m., bicarb of 13. This is an entirely new finding. Liver studies show minimal elevation to AST at 2:28 a.m. and ALT at 51 Lactic acid is not elevated Respiratory panel shows no detected viruses Independently reviewed EKG: Sinus rhythm at a rate of 68 with no acute ischemic changes Imaging studies independently reviewed: Chest x-ray is unremarkable US renal: Normal renal cortex, no hydronephrosis, bilateral nonobstructing stones in the renal parenchyma, postvoid residual 173 Consultations: Closest inpatient bed available is [facility], discussed care with [facility] 12:[address] p[address] Akins, hospitalist. Would like to have Nephrology involved. Recommended renal ultrasound which has been ordered, blood cultures and full respiratory panel have been added 215 Discussoin with Hospitalist and Nephrology Treatments: NS 1 l Re-evaluations: 1150am findings reviewed with the patient and her . Explained the acute renal failure significant electrolyte and blood work abnormalities you for further workup with highly specialized care including Nephrology. They understand the need for transfer. We will begin to look for bed availability Discussion: 53-year-old woman presents with recurrent episodes of hypotension and syncope/near-syncope. Over the last number of weeks her amlodipine, lisinopril and chlorthalidone have been discontinued. Last blood pressure medication given was greater than 48 hours ago. Her primary complaint is severe fatigue. Her says that she had a fever above 100 sometime earlier this week and is concerned that she has been cold and wrapping herself in blankets. Unclear if this is actually fevers and chills. Patient has been on semaglutide believes that has been for a month, says that has been significantly longer. Significant electrolyte abnormalities including new acute renal failure with a creatinine is 7.4. Other electrolyte abnormalities include a sodium of 125, potassium 3.2, bicarb of 13. White count is low at 2, there was no anemia platelets are low at 106. Patient states she has been making urine describes it as exactly has it has been as well as volumes. Renal ultrasound does not suggest significant abnormality and healthy-appearing renal cortex. No ureteral obstruction appreciated. She did respond to a L of fluid and blood pressures have been in the 90-100 range systolic. No signs of sepsis or other infectious etiology. Respiratory panel has been sent will include if available prior to transport. Patient will be transferred to [facility] for hospital admission with nephrology consultation. Findings concerns and reason for transfer reviewed with the patient and her . Additional Information: 420pm Transport here. Discharge Plan Departure Patient Disposition: [facility] Clinical Impression: Acute hyponatremia, Acute hypokalemia, Thrombocytopenia, Acute hypotension Leukocytopenia, unspecified Qualifiers: Leukopenia type: unspecified Qualified Code(s): D72.819 - Decreased white blood cell count, unspecified Prescriptions: No Action simvastatin 10 mg tablet 10 mg PO ONCE PM chlorthalidone 25 mg tablet 25 mg PO QAM amlodipine 10 mg tablet See Rx Instructions .ROUTE .COMPLEX Rx Instructions: as above Jardiance 10 mg tablet 5 mg PO DAILY lisinopril 10 mg tablet 10 mg PO DAILY Qty: 30 2RF Referrals: Radha Butcher MD [Primary Care Provider, Family Practice]
--- NOTE | 2024-09-10 14:00 | DI.US.S_ITS ---
PROCEDURE: US RENAL COMPLETE INDICATIONS: acute renal failure TECHNIQUE: Real-time scanning was performed of the kidneys and bladder, with image documentation. COMPARISON: None. FINDINGS: Kidneys: Right kidney measures 13 cm. Left kidney measures 11 cm. No hydronephrosis bilaterally. Left nonobstructing 9 mm calculus is present in the mid region. Partially staghorn calculus seen in the right upper to mid kidney, measuring up to 1.9 x 1.7 cm Bladder: Postvoid residual is 173 cc. Patient voided immediately prior to exam. Miscellaneous: No free pelvic fluid. IMPRESSION: 173 cc postvoid residual. No hydronephrosis. 9 mm left nonobstructing mid region calculus. Partially staghorn right superior to mid calculus measuring 1.9 x 1.7 cm. Dictated by: Neri Hernandez M.D. on 09/10/2024 at 14:02 Approved by: Neri Hernandez M.D. on 09/10/2024 at 14:04
[2024-09-10 14:32] LABS: Appearance Urine UA SL CLOUDY; Bilirubin Urine UA NEGATIVE (NEGATIVE); Color Urine UA YELLOW; Glucose Urine UA NEGATIVE (Negative); Ketones Urine UA NEGATIVE (NEGATIVE); Leukocyte Esterase Urine UA TRACE (NEGATIVE); Nitrite Urine UA NEGATIVE (Negative); Occult Blood Urine UA 2+ (Negative); Protein Urine UA 2+ (Negative); Specific Gravity Urine UA 1.015 (1.000-1.035); Urobilinogen Urine UA 0.2 E.U./dL (0.2)
[2024-09-10 14:34] LABS: pH Urine UA 5.5 (4.5-8.0)
--- NOTE | 2024-09-10 14:50 | PC.NURSE ---
increased weakness, low bp, low bs at home. newly started on ozempic
[2024-09-10 14:51] LABS: RBC Urine None Seen (0-5/HPF); Urine Volume 10mL (spun)
[2024-09-10 14:52] LABS: Amorphous Sediment Urine 1+; Bacteria Urine Few (2-10); Squamous Epithelial Cell Urine 0-1 /HPF (0-5/HPF); WBC Urine 1-5/HPF (0-5/HPF)
[2024-09-10 14:53] LABS: Culture Indicated Urine Cult Not Indicated; Granular Casts Urine 1-5/LPF
[2024-09-10 15:20] LABS: Adenovirus Not Detected (Not Detect); B. parapertussis Not Detected (Not Detecte); Bordetella pertussis Not Detected (Not Detect); Chlamydophila pneumoniae Not Detected (Not Detect); Coronavirus 229E Not Detected (Not Detect); Coronavirus HKU1 Not Detected (Not Detect); Coronavirus NL 63 Not Detected (Not Detect); Coronavirus OC43 Not Detected (Not Detect); Human Metapneumovirus Not Detected (Not Detect); Human Rhinovirus/Enterovirus Not Detected (Not Detect); Influenza A Not Detected (Not Detect); Influenza B Not Detected (Not Detect); Mycoplasma pneumoniae Not Detected (Not Detect); Parainfluenza Virus 1 Not Detected (Not Detect); Parainfluenza Virus 2 Not Detected (Not Detect); Parainfluenza Virus 3 Not Detected (Not Detect); Parainfluenza Virus 4 Not Detected (Not Detect); Respiratory Syncytial Virus Not Detected (Not Detect); SARS- CoV-2 Not Detected (Not Detecte)
--- NOTE | 2024-09-10 16:27 | PC.NURSE ---
Pt reports she was at [place] on Wednesday and felt dizzy 1 week prior. Pt reports she has felt dizzy since starting gabapentin. Pt reports taking 900mg/day over the past 2 weeks. Pt states she first started Ozempic in May at .25 and increased dose at .5
[2024-09-10 16:33] LABS: POC Glucose 84 mg/dL (70-99)
--- NOTE | 2024-09-10 17:20 | PC.NURSE ---
Reassess; no change. Persistent weakness and dizziness.
== END 2024-09-10 16:50 | disposition short-term general hospital (02) ==
PROVIDERS: Emergency Provider Emergency Medicine; PCP Family Medicine
DX: D72.819 Decreased white blood cell count, unspecified (principal); E87.6 Hypokalemia; D69.6 Thrombocytopenia, unspecified; I95.9 Hypotension, unspecified; E87.1 Hypo-osmolality and hyponatremia; R41.0 Disorientation, unspecified
CPT/HCPCS: 36415; 51798; 71045; 76770; 80053; 81001; 82962; 83605; 83690; 83735; 85025; 87040; 87633; 93005; 93010; 96360; 99284

== ENCOUNTER 2024-09-22 22:13 | Emergency (ER) | payer OTHER, SELFPAY ==
[2024-09-22 22:15] VITALS: BP 132/79; PULSE 94; RESP 16; TEMP 39.3; O2SAT 99; BMI 39.6
--- NOTE | 2024-09-22 22:26 | DI.RAD.S_ITS ---
PROCEDURE: XR CHEST 1V INDICATIONS: suspected sepsis TECHNIQUE: One view of the chest was acquired. COMPARISON: [facility], CR, XR CHEST 1V, 09/10/2024, 10:42. FINDINGS: Surgical changes and devices: None. Lungs and pleura: Lungs are clear. No pleural effusions or pneumothorax. Mediastinum: Mediastinal contours appear normal. Heart size is prominent. Bones and chest wall: No suspicious bony lesions. Overlying soft tissues appear unremarkable. IMPRESSION: No acute pulmonary process. Dictated by: Abby Odell M.D. on 09/22/2024 at 23:57 Approved by: Abby Odell M.D. on 09/22/2024 at 23:57
[2024-09-22 23:03] VITALS: BP 133/75; PULSE 81; O2SAT 100
--- NOTE | 2024-09-22 23:08 | ED.FEVER ---
HPI - Fever General Chief Complaint: Fever Stated Complaint: [id number] ,chills , kidney failure [id number] Time Seen by Provider: 09/22/24 22:17 Source: patient Mode of arrival: Family Vehicle History of Present Illness HPI Narrative: 53-year-old female history of diabetes, cva, hypertension, dyslipidemia recently diagnosed with renal failure and transferred over to [facility] with elevated creatinine, low-sodium low potassium and low platelet found kidney failure was medication induced and so most of her medicines have been decreased or taken off causing kidney failure. Patient presents with fever of 102 today despite being on Tylenol states this fever has been ongoing since she has been discharge but denies any urinary complaint, cough runny nose sore throat nausea vomiting diarrhea or any sick contacts. Other than what is stated 14 point review of system is negative. Related Data Home Medications ?Medication ?Instructions ?Recorded ?Confirmed amlodipine 10 mg tablet See Rx Instructions .Route .COMPLEX 01/27/24 01/27/24 chlorthalidone 25 mg tablet 25 mg PO QAM 01/27/24 01/27/24 empagliflozin 10 mg tablet 5 mg PO DAILY 01/27/24 01/27/24 (Jardiance) simvastatin 10 mg tablet 10 mg PO ONCE PM 01/27/24 01/27/24 Previous Rx's ?Medication ?Instructions ?Recorded lisinopril 10 mg tablet 10 mg PO DAILY #30 tabs 02/12/23 Allergies Allergy/AdvReac Type Severity Reaction Status Date / Time Penicillins (PENICILLINS) Allergy Mild RASH Verified 09/22/24 22:19 amoxicillin (From AUGMENTIN) Allergy Unknown RASH Verified 09/22/24 22:19 clavulanic acid (From Allergy Unknown RASH Verified 09/22/24 22:19 AUGMENTIN) Review of Systems Review of Systems ROS Unobtainable: All systems reviewed & are unremarkable except as noted in HPI and below Patient History Medical History Hyperlipidemia Diabetes Hypertension Exam Narrative Exam Narrative: GENERAL: [53] year old patient appears stated age. Well-developed patient, in mild distress. HEAD: Atraumatic. Normocephalic. EYES: Pupils equal round and reactive. Extraocular motions intact. No scleral icterus. No injection or drainage. ENT: Nose without bleeding, purulent drainage. Throat without erythema, tonsillar hypertrophy or exudate. Airway patent. NECK: Trachea midline. Non tender CARDIOVASCULAR: Regular rate and rhythm without murmurs, gallops, or rubs. RESPIRATORY: Clear to auscultation. Breath sounds equal bilaterally. No wheezes, rales, or rhonchi. GASTROINTESTINAL: Abdomen soft, non-tender, nondistended. EXTREMITIES: No edema or joint tenderness. BACK: Nontender without deformity or crepitance. No flank tenderness. NEURO: AOx3. SKIN: No rash or erythema of visible areas Initial Vital Signs Initial Vital Signs: Vital Signs Temperature 102.8 F H 09/22/24 22:15 Pulse Rate 94 H 09/22/24 22:15 Respiratory Rate 16 09/22/24 22:15 Blood Pressure 132/79 09/22/24 22:15 Pulse Oximetry 99 09/22/24 22:15 Oxygen Delivery Method Room Air 09/22/24 22:15 Course Orders Ordered: Discontinued Medications Acetaminophen (Acetaminophen 325 Mg Tablet) 975 mg PO NOW ONE Stop: 09/22/24 23:22 Last Admin: 09/22/24 23:55 Dose: 975 mg Documented By: Sodium Chloride (Normal Saline 0.9%) 1,000 mls @ 1,000 mls/hr IV BOLUS ONE Stop: 09/22/24 23:25 Last Infusion: 09/23/24 01:06 Dose: Infused Documented By: Admin: 09/22/24 23:55 Dose: 1,000 mls/hr Documented By: Magnesium Sulfate (Magnesium Sulfate) 2 gm in 50 mls @ 150 mls/hr IV NOW ONE Stop: 09/23/24 01:49 Last Infusion: 09/23/24 03:22 Dose: Infused Documented By: JAMIE Co-signed By: Admin: 09/23/24 01:45 Dose: 150 mls/hr Documented By: JAMIE Co-signed By: RAFAEL POTASSIUM CHLORIDE IN WATER (Potassium Cl 10 Meq/100 Ml Hollie) 10 meq in 100 mls @ 100 mls/hr IV Q1H TAINA Stop: 09/23/24 04:59 Last Infusion: 09/23/24 06:05 Dose: Infused Documented By: Admin: 09/23/24 04:43 Dose: 100 mls/hr Documented By: Infusion: 09/23/24 04:26 Dose: Infused Documented By: Admin: 09/23/24 03:26 Dose: 100 mls/hr Documented By: JAMIE Sodium Chloride (Normal Saline 0.9%) 1,000 mls @ 150 mls/hr IV CONT TAINA Last Admin: 09/23/24 03:37 Dose: Not Given Documented By: JAMIE Sodium Chloride (Normal Saline 0.9%) 1,000 mls @ 150 mls/hr IV CONT TAINA Last Admin: 09/23/24 03:29 Dose: 150 mls/hr Documented By: JAMIE Ondansetron HCl (Ondansetron 4 Mg/2 Ml Inj) 4 mg IV NOW PRN PRN Reason: Nausea And Vomiting Last Admin: 09/23/24 02:02 Dose: 4 mg Documented By: JAMIE Ondansetron HCl (Ondansetron 4 Mg Odt) 4 mg PO NOW PRN PRN Reason: Nausea And Vomiting Potassium Chloride (Potassium Chloride 20 Meq/15 Ml Udc) 40 meq PO NOW ONE Stop: 09/23/24 00:36 Last Admin: 09/23/24 01:25 Dose: 40 meq Documented By: AB Vital Signs Vital signs: Vital Signs - 8 hr 09/22/24 22:15 Temperature 102.8 F H Pulse Rate 94 H Respiratory Rate 16 Blood Pressure 132/79 Pulse Oximetry 99 Oxygen Delivery Method Room Air MDM - Fever Lab Data 09/22/24 23:01 09/22/24 23:01 Labs: Lab Results 09/22/24 09/23/24 09/23/24 Range/Units 23:01 00:35 01:40 WBC 2.3 L (4.5-11.0) X10^3/uL RBC 3.80 L (4.0-5.2) X10^6/uL Hgb 11.4 L (12.0-16.0) g/dL Hct 32.6 L (36-46) % MCV 85.8 (80-100) fL MCH 30.0 (26-34) PG MCHC 35.0 (30-36) % RDW 12.6 (11.6-14.8) % Plt Count 118 L (150-400) X10^3/uL Neut % (Auto) 61.7 (50-75) % Lymph % (Auto) 30.8 (25-40) % Dent % (Auto) 6.1 (3-14) % Eos % (Auto) 0.0 L (2-4) % Baso % (Auto) 1.4 (0-2) % Neut # (Auto) 1400 L (3607-3064) /uL Lymph # (Auto) 700 L (1760-0770) /uL Dent # (Auto) 100 (0-900) /uL Eos # (Auto) 0 (0-450) /uL Baso # (Auto) 0 (0-100) /uL PT 16.6 H (9.4-12.5) SECONDS INR 1.5 H (0.9-1.3) APTT 30 (25.1-36.5) SECONDS Sodium 133 L (137-145) mmol/L Potassium 3.2 L (3.4-5.1) mmol/L Chloride 101 (98-107) mmol/L Carbon Dioxide 22 (22-32) mmol/L BUN 16 (7-17) mg/dL Creatinine 0.88 (0.52-1.04) mg/dL Estimated GFR > 60 (>60) mL/min BUN/Creatinine Ratio 18.2 (6-22) Glucose 126 H (70-99) mg/dL Lactate 0.9 (0.7-2.1) mmol/L Calcium 8.8 (8.4-10.2) mg/dL Magnesium 1.4 L (1.6-2.3) mg/dL Total Bilirubin 1.4 H (0.2-1.3) mg/dL AST 68 H (14-36) IU/L ALT 22 (<35) IU/L Alkaline Phosphatase 96 (38-126) U/L Total Protein 6.8 (6.3-8.2) g/dL Albumin 3.5 (3.5-5.0) g/dL Globulin 3.3 (1.7-4.1) g/dL Albumin/Globulin Ratio 1.1 (1.0-2.8) Lipase 145 (23-300) U/L Procalcitonin 0.304 (<0.5) ng/mL Ur Bilirubin Confirm Negative (Negative) Urine RBC None seen (0-5/HPF) Urine WBC None seen (0-5/HPF) Ur Squamous Epith Cells None seen (0-5/HPF) Urine Bacteria None seen (None) Ur Culture Indicated? Cult not indicated Vol Urine Centrifuged 10ml (spun) Chlamy pneumoniae PCR (Not Detect) Adenovirus (PCR) (Not Detect) B. pertussis DNA (PCR) (Not Detect) B.parapertussis DNA PCR (Not Detecte) Coronavirus OC43 (PCR) (Not Detect) Coronavirus HKU1 (PCR) (Not Detect) Coronavirus 229E (PCR) (Not Detect) SARS-CoV-2 (PCR) (Not Detecte) Coronavirus NL63 (PCR) (Not Detect) Human Metapneumovir PCR (Not Detect) Influenza Type A (PCR) (Not Detect) Influenza Type B (PCR) (Not Detect) M. pneumoniae (PCR) (Not Detect) Parainfluenza 1 (PCR) (Not Detect) Parainfluenza 2 (PCR) (Not Detect) Parainfluenza 3 (PCR) (Not Detect) Parainfluenza 4 (PCR) (Not Detect) RSV (PCR) (Not Detect) Entero/Rhino (PCR) (Not Detect) 09/23/24 Range/Units 02:10 WBC (4.5-11.0) X10^3/uL RBC (4.0-5.2) X10^6/uL Hgb (12.0-16.0) g/dL Hct (36-46) % MCV (80-100) fL MCH (26-34) PG MCHC (30-36) % RDW (11.6-14.8) % Plt Count (150-400) X10^3/uL Neut % (Auto) (50-75) % Lymph % (Auto) (25-40) % Dent % (Auto) (3-14) % Eos % (Auto) (2-4) % Baso % (Auto) (0-2) % Neut # (Auto) (1587-9531) /uL Lymph # (Auto) (6943-6363) /uL Dent # (Auto) (0-900) /uL Eos # (Auto) (0-450) /uL Baso # (Auto) (0-100) /uL PT (9.4-12.5) SECONDS INR (0.9-1.3) APTT (25.1-36.5) SECONDS Sodium (137-145) mmol/L Potassium (3.4-5.1) mmol/L Chloride (98-107) mmol/L Carbon Dioxide (22-32) mmol/L BUN (7-17) mg/dL Creatinine (0.52-1.04) mg/dL Estimated GFR (>60) mL/min BUN/Creatinine Ratio (6-22) Glucose (70-99) mg/dL Lactate (0.7-2.1) mmol/L Calcium (8.4-10.2) mg/dL Magnesium (1.6-2.3) mg/dL Total Bilirubin (0.2-1.3) mg/dL AST (14-36) IU/L ALT (<35) IU/L Alkaline Phosphatase (38-126) U/L Total Protein (6.3-8.2) g/dL Albumin (3.5-5.0) g/dL Globulin (1.7-4.1) g/dL Albumin/Globulin Ratio (1.0-2.8) Lipase (23-300) U/L Procalcitonin (<0.5) ng/mL Ur Bilirubin Confirm (Negative) Urine RBC (0-5/HPF) Urine WBC (0-5/HPF) Ur Squamous Epith Cells (0-5/HPF) Urine Bacteria (None) Ur Culture Indicated? Vol Urine Centrifuged Chlamy pneumoniae PCR Not detected (Not Detect) Adenovirus (PCR) Not detected (Not Detect) B. pertussis DNA (PCR) Not detected (Not Detect) B.parapertussis DNA PCR Not detected (Not Detecte) Coronavirus OC43 (PCR) Not detected (Not Detect) Coronavirus HKU1 (PCR) Not detected (Not Detect) Coronavirus 229E (PCR) Not detected (Not Detect) SARS-CoV-2 (PCR) Not detected (Not Detecte) Coronavirus NL63 (PCR) Not detected (Not Detect) Human Metapneumovir PCR Not detected (Not Detect) Influenza Type A (PCR) Not detected (Not Detect) Influenza Type B (PCR) Not detected (Not Detect) M. pneumoniae (PCR) Not detected (Not Detect) Parainfluenza 1 (PCR) Not detected (Not Detect) Parainfluenza 2 (PCR) Not detected (Not Detect) Parainfluenza 3 (PCR) Not detected (Not Detect) Parainfluenza 4 (PCR) Not detected (Not Detect) RSV (PCR) Not detected (Not Detect) Entero/Rhino (PCR) Not detected (Not Detect) Urine Dip Bedside Urine Glucose Negative Bedside Urine Bilirubin + 1 Bedside Urine Ketone - Negative Urine Specific May 1.015 Bedside Urine Occult Blood - Negative Bedside Urine pH 6.0 Bedside Urine Protein ++ 100 Bedside Urine Urobilinogen 2+ 4mg Bedside Urine Nitrite - Negative Bedside Urine Leukocytes - Negative Esterase Imaging Data Chest x-ray: Radiologist's Impression: [place] [address] XRay Report Signed Patient: Enma Bermudez MR#: [id number] : 1970 Acct:[id number] Age/Sex: 53 / F Date of Service: 09/22/24 Loc: ED Accession Number: [id number] Procedure: XR chest 1V Ordering Provider: Olu Montemayor D.O. PROCEDURE: XR CHEST 1V INDICATIONS: suspected sepsis TECHNIQUE: One view of the chest was acquired. COMPARISON: [facility], CR, XR CHEST 1V, 09/10/2024, 10:42. FINDINGS: Surgical changes and devices: None. Lungs and pleura: Lungs are clear. No pleural effusions or pneumothorax. Mediastinum: Mediastinal contours appear normal. Heart size is prominent. Bones and chest wall: No suspicious bony lesions. Overlying soft tissues appear unremarkable. IMPRESSION: No acute pulmonary process. CT scan - abdomen/pelvis: Radiologist's Impression: [place] [address] CT Scan Report Signed Patient: Enma Bermudez MR#: [id number] : 1970 Acct:[id number] Age/Sex: 53 / F Date of Service: 09/22/24 Loc: ED Accession Number: [id number] Procedure: CT abdomen pelvis wo con Ordering Provider: Olu Montemayor D.O. PROCEDURE: CT ABDOMEN PELVIS WO CON INDICATIONS: fever /kidney failure TECHNIQUE: CT of the abdomen and pelvis was obtained without intravenous contrast. Coronal and sagittal reformats were performed. For radiation dose reduction, the following was used: automated exposure control, adjustment of mA and/or kV according to patient size. COMPARISON: [facility], CT, CT ABDOMEN PELVIS W CON, 01/26/2024, 11:51. FINDINGS: Image quality: Diagnostic. Lower Chest: No significant findings. ABDOMEN: Liver: No contour-deforming mass. Gallbladder: Multiple stones thickening. Biliary ducts: No biliary dilation. Pancreas: No ductal dilation. Spleen: Size is within normal limits. Adrenal Glands: No adrenal nodules. Kidneys and Ureters: No hydronephrosis. No contour-deforming mass. Stomach and Bowel: Normal colonic caliber, without significant wall thickening. Postsurgical gastric changes are. Peritoneum: No abnormal intraperitoneal fluid. No free air. Ventral Wall: No significant hernia. Abdominal Nodes: No retroperitoneal or mesenteric adenopathy by size criteria. Vessels: Aorta and inferior vena cava are normal in size. PELVIS: Pelvic Organs: Unremarkable. Bladder: Unremarkable. Pelvic Nodes: No enlarged lymph nodes. Previously enlarged right iliac node has decreased in size currently measuring 6 mm. Miscellaneous: No inguinal hernias are seen. Bones: No aggressive osseous abnormality. Thoracolumbar degenerative change. IMPRESSION: Cholelithiasis appearance cholecystitis. US - abdomen: Radiologist's Impression: [address] [address] Ultrasound Report Signed Patient: Enma Bermudez MR#: [id number] : 1970 Acct:[id number] Age/Sex: 53 / F Date of Service: 09/23/24 Loc: ED Accession Number: [id number] Procedure: US abdomen limited Ordering Provider: Olu Montemayor D.O. PROCEDURE: US ABDOMEN LIMITED INDICATIONS: ABN GALLBLADDER ON CT TECHNIQUE: Real-time scanning was performed of the abdominal and retroperitoneal organs, with image documentation. COMPARISON: [facility], CT, CT ABDOMEN PELVIS WO CON, 09/22/2024, 23:39. FINDINGS: Liver: Liver is normal in size and homogeneous in echotexture. Gallbladder: Multiple foci echogenicity are present in the gallbladder neck. No wall thickening. No pericholecystic edema. Negative sonographic Jacobs's sign. Biliary ducts: Intrahepatic bile ducts are non-dilated. Extrahepatic bile duct caliber measures 3.4 mm. Normal is 6-7 mm or less in diameter, or 10 mm or less post-cholecystectomy. Pancreas: Visualized portions of the pancreas are sonographically normal. Miscellaneous: No free abdominal fluid. IMPRESSION: Cholelithiasis without cholecystitis. MDM Narrative Medical decision making narrative: Vital signs, nurse triage note, medication list, previous ER visits, and all imaging studies reviewed. Chest x-ray did not show any acute process. CT abdomen and pelvis showed cholelithiasis appearance cholecystitis. Ultrasound abdomen showed cholelithiasis without cholecystitis. Urine did not reveal any UTI. Patient arrived here with a temperature of 102.8 given Tylenol here and temperature 98.5. WBC 2.3, hemoglobin 11.4, platelets 118. Neutrophil 1400, lymph number 700, sodium 133, potassium 3.2, glucose 126, magnesium 1.4, procalcitonin 0.304, lactic acid 0.9. Two sets of blood cultures obtained. Case discussed with Dr. Webb hospitalist at [facility] who has graciously accepted the patient for inpatient admission for fever of unknown origin. Discharge Plan Departure Patient Disposition: [facility] Clinical Impression: Cholecystitis without cholelithiasis, Pancytopenia, Fever of unknown origin (FUO) Prescriptions: No Action simvastatin 10 mg tablet 10 mg PO ONCE PM chlorthalidone 25 mg tablet 25 mg PO QAM amlodipine 10 mg tablet See Rx Instructions .ROUTE .COMPLEX Rx Instructions: as above Jardiance 10 mg tablet 5 mg PO DAILY lisinopril 10 mg tablet 10 mg PO DAILY Qty: 30 2RF Referrals: Radha Bucther MD [Primary Care Provider, Family Practice]
[2024-09-22 23:14] LABS: Add Manual Diff / Slide Review NO; Hematocrit 32.6 % (36-46); Hemoglobin 11.4 g/dL (12.0-16.0); Lymphocytes Absolute Auto 700 /uL (1100-4500); Mean Corpuscular HGB Conc 35.0 % (30-36); Mean Corpuscular Hemoglobin 30.0 PG (26-34); Mean Corpuscular Volume 85.8 fL (80-100); Platelet Count 118 X10^3/uL (150-400)
--- NOTE | 2024-09-22 23:20 | DI.CT.S_ITS ---
PROCEDURE: CT ABDOMEN PELVIS WO CON INDICATIONS: fever /kidney failure TECHNIQUE: CT of the abdomen and pelvis was obtained without intravenous contrast. Coronal and sagittal reformats were performed. For radiation dose reduction, the following was used: automated exposure control, adjustment of mA and/or kV according to patient size. COMPARISON: [facility], CT, CT ABDOMEN PELVIS W CON, 01/26/2024, 11:51. FINDINGS: Image quality: Diagnostic. Lower Chest: No significant findings. ABDOMEN: Liver: No contour-deforming mass. Gallbladder: Multiple stones thickening. Biliary ducts: No biliary dilation. Pancreas: No ductal dilation. Spleen: Size is within normal limits. Adrenal Glands: No adrenal nodules. Kidneys and Ureters: No hydronephrosis. No contour-deforming mass. Stomach and Bowel: Normal colonic caliber, without significant wall thickening. Postsurgical gastric changes are. Peritoneum: No abnormal intraperitoneal fluid. No free air. Ventral Wall: No significant hernia. Abdominal Nodes: No retroperitoneal or mesenteric adenopathy by size criteria. Vessels: Aorta and inferior vena cava are normal in size. PELVIS: Pelvic Organs: Unremarkable. Bladder: Unremarkable. Pelvic Nodes: No enlarged lymph nodes. Previously enlarged right iliac node has decreased in size currently measuring 6 mm. Miscellaneous: No inguinal hernias are seen. Bones: No aggressive osseous abnormality. Thoracolumbar degenerative change. IMPRESSION: Cholelithiasis appearance cholecystitis. Dictated by: Abby Odell M.D. on 09/22/2024 at 23:58 Approved by: Abby Odell M.D. on 09/22/2024 at 23:59
[2024-09-22 23:30] VITALS: PULSE 79; O2SAT 100
[2024-09-22 23:31] LABS: INR 1.5 (0.9-1.3); Prothrombin Time 16.6 SECONDS (9.4-12.5)
[2024-09-22 23:33] LABS: Lactate (Lactic Acid) 0.9 mmol/L (0.7-2.1); PTT Partial Thromboplastin Tim 30 SECONDS (25.1-36.5)
[2024-09-22 23:34] LABS: Alanine Aminotransferase 22 IU/L (<35); Albumin 3.5 g/dL (3.5-5.0); Albumin Globulin Ratio 1.1 (1.0-2.8); Alkaline Phosphatase 96 U/L (38-126); Blood Urea Nitrogen 16 mg/dL (7-17); Calcium 8.8 mg/dL (8.4-10.2); Carbon Dioxide 22 mmol/L (22-32); Chloride 101 mmol/L (98-107); Estimated Glomerular Filt Rate > 60 mL/min (>60); Globulin 3.3 g/dL (1.7-4.1); Glucose 126 mg/dL (70-99); HEMOLYSIS < 15 (0-50); Lipase 145 U/L (23-300); Potassium 3.2 mmol/L (3.4-5.1); Sodium 133 mmol/L (137-145); Total Protein 6.8 g/dL (6.3-8.2)
[2024-09-22 23:51] LABS: Procalcitonin 0.304 ng/mL (<0.5)
[2024-09-22 23:55] VITALS: TEMP 38.8
[2024-09-22] MEDS: SODIUM CHLORIDE 0.9% 1,000 ML 1000 ML IV (23:55)
[2024-09-22] MEDS: ACETAMINOPHEN 325 MG TABLET 975 MG PO (23:55)
[2024-09-23] VITALS (16 sets, daily range): BP systolic 114–212; BP diastolic 54–142; PULSE 60–89; RESP 11–26; TEMP 36.9; O2SAT 94–100
--- NOTE | 2024-09-23 00:15 | DI.US.S_ITS ---
PROCEDURE: US ABDOMEN LIMITED INDICATIONS: ABN GALLBLADDER ON CT TECHNIQUE: Real-time scanning was performed of the abdominal and retroperitoneal organs, with image documentation. COMPARISON: [facility], CT, CT ABDOMEN PELVIS WO CON, 09/22/2024, 23:39. FINDINGS: Liver: Liver is normal in size and homogeneous in echotexture. Gallbladder: Multiple foci echogenicity are present in the gallbladder neck. No wall thickening. No pericholecystic edema. Negative sonographic Jacobs's sign. Biliary ducts: Intrahepatic bile ducts are non-dilated. Extrahepatic bile duct caliber measures 3.4 mm. Normal is 6-7 mm or less in diameter, or 10 mm or less post-cholecystectomy. Pancreas: Visualized portions of the pancreas are sonographically normal. Miscellaneous: No free abdominal fluid. IMPRESSION: Cholelithiasis without cholecystitis. Dictated by: Abby Odell M.D. on 09/23/2024 at 1:04 Approved by: Abby Odell M.D. on 09/23/2024 at 1:05
[2024-09-23 01:04] LABS: Magnesium 1.4 mg/dL (1.6-2.3)
[2024-09-23] MEDS: POTASSIUM CHLORIDE 20 MEQ/15 ML UDC 40 MEQ PO (01:25)
[2024-09-23] MEDS: MAGNESIUM SULFATE 2 GM/50 ML PIGGYBACK IV (01:45)
[2024-09-23] MEDS: ONDANSETRON 4 MG/2 ML INJ IV (02:02)
[2024-09-23 02:37] LABS: Culture Indicated Urine Cult Not Indicated; Ictotest Urine Negative (Negative)
[2024-09-23 03:06] LABS: Coronavirus NL 63 Not Detected (Not Detect); SARS- CoV-2 Not Detected (Not Detecte)
[2024-09-23] MEDS: POTASSIUM CHLORIDE IN WATER 10 MEQ/100 ML PIGGYBACK 100 MEQ IV ×2 (03:26→04:43)
[2024-09-23] MEDS: SODIUM CHLORIDE 0.9% 1,000 ML 150 ML IV (03:29)
== END 2024-09-23 07:15 | disposition short-term general hospital (02) ==
LOC: ED 22:18
PROVIDERS: Emergency Provider Family Medicine; PCP Family Medicine
DX: K81.9 Cholecystitis, unspecified (principal); D61.818 Other pancytopenia; R50.9 Fever, unspecified
CPT/HCPCS: 36415; 71045; 74176; 76705; 80053; 81003; 81015; 83605; 83690; 83735; 84145; 85025; 85610; 85730; 87040; 87633; 96361; 96365; 96366; 96367; 96375; 99284; J2405; J3475

== ENCOUNTER → 2024-10-17 07:04 | Outpatient (CLI) | payer OTHER, SELFPAY ==
[2024-10-17 07:48] LABS: Add Manual Diff / Slide Review NO; Hematocrit 29.7 % (36-46); Hemoglobin 9.9 g/dL (12.0-16.0); Lymphocytes Absolute Auto 3200 /uL (1100-4500); Mean Corpuscular HGB Conc 33.4 % (30-36); Mean Corpuscular Hemoglobin 31.1 PG (26-34); Mean Corpuscular Volume 93.2 fL (80-100); Platelet Count 144 X10^3/uL (150-400)
[2024-10-17 07:57] LABS: Anisocytosis 2+
[2024-10-17 08:05] LABS: Alanine Aminotransferase 45 IU/L (<35); Albumin 3.5 g/dL (3.5-5.0); Albumin Globulin Ratio 1.3 (1.0-2.8); Alkaline Phosphatase 121 U/L (38-126); Blood Urea Nitrogen 17 mg/dL (7-17); Calcium 9.5 mg/dL (8.4-10.2); Carbon Dioxide 25 mmol/L (22-32); Chloride 104 mmol/L (98-107); Estimated Glomerular Filt Rate > 60 mL/min (>60); Globulin 2.7 g/dL (1.7-4.1); Glucose 90 mg/dL (70-99); HEMOLYSIS < 15 (0-50); Potassium 3.9 mmol/L (3.4-5.1); Sodium 137 mmol/L (137-145); Total Protein 6.2 g/dL (6.3-8.2)
[2024-10-17 08:38] LABS: Ferritin 319 ng/mL (11-264)
== END ==
PROVIDERS: PCP Family Medicine; Referring Provider Family Medicine
DX: D61.818 Other pancytopenia (principal)
CPT/HCPCS: 36415; 80053; 82728; 83615; 85025